=== PATIENT | male | born 1985 | race Caucasian/White ===

== ENCOUNTER 2022-05-09 20:14 | Emergency (ER) | payer SELFPAY ==
[~2022-05-09] VITALS: Ht 180.3 cm; Wt 97.5 kg
[2022-05-09] MEDS ORDERED: CEPH500 PO (22:17)
== END 2022-05-09 22:29 | disposition home or self-care (01) ==
LOC: ER 20:14
DX: L03.113 Cellulitis of right upper limb (principal); L03.114 Cellulitis of left upper limb
CPT/HCPCS: 99283; A9270

== ENCOUNTER 2022-10-05 05:30 | Inpatient (IN) | payer OTHER ==
[~2022-10-05] VITALS: Ht 180.3 cm; Wt 83.0 kg
[~2022-10-05 05:30] MED LIST: CEPH500 PO
[2022-10-05 06:55] LABS: Hematocrit 25.8 % (37.0-53.0); Hemoglobin 8.8 g/dL (13.5-17.5); Mean Corpuscular HGB 28.4 pg (26.0-34.0); Mean Corpuscular HGB Conc 34.1 g/dL (31.5-36.5); Mean Corpuscular Volume 83 fL (80-100); Mean Platelet Volume 8.9 fL (9.1-12.4); Platelet Count 307 K/mm3 (150-400); RDW Coefficient Variation 13.2 % (11.7-14.2); RDW Standard Deviation 39.8 fL (35.1-46.3); White Blood Cell Count 24.93 K/mm3 (4.00-11.30)
[2022-10-05 07:25] LABS: Albumin, Blood 2.1 g/dL (3.4-5.0); Albumin/Globulin Ratio 0.4 (0.8-1.8); Bilirubin, Total 0.8 mg/dL (0.1-1.0); Bun/Creatinine Ratio 37.6 (12.0-20.0); C-REACTIVE PROTEIN, EXT RANGE 15.1 mg/dL (0.000-0.300); Calcium, Blood 8.3 mg/dL (8.5-10.1); Creatinine, Blood 0.93 mg/dL (0.60-1.20); Globulin, Blood 4.9 g/dL (2.2-4.0); Potassium, Blood 4.2 mmol/L (3.5-5.5)
[2022-10-05 07:36] LABS: BAND PERCENT MAN 5 % (0-8); BASOPHILS PERCENT MAN 0 % (0-2); EOSINOPHILS PERCENT MAN 0 % (0-6); LYMPHOCYTES ABSOLUTE MAN 1.49 K/mm3 (0.84-5.20); LYMPHOCYTES PERCENT MAN 6 % (21-46); METAMYELOCYTE ABSOLUTE MAN 0.24 K/mm3 (0.00-0.00); METAMYELOCYTE PERCENT MAN 1 % (0-0); MONOCYTES ABSOLUTE MAN 0.49 K/mm3 (0.16-1.47); MONOCYTES PERCENT MAN 2 % (4-13); NEUTROPHILS ABSOLUTE MAN 22.68 K/mm3 (1.96-9.15); SEG NEUTROPHILS PERCENT MAN 86 % (41-73); TOTAL CELLS COUNTED 100
[2022-10-05 12:24] LABS: Source, Urine Clean Catch
[2022-10-05 12:28] LABS: Appearance, Urine Clear (Clear); Bilirubin, Urine Neg (Neg); Blood, Urine 2+ (Neg); Color, Urine Yellow (P-Yellow); Glucose Qualitative, Urine Neg (Neg); Ketones, Urine Neg (Neg); Leukocyte Esterase, Urine Neg (Neg); Nitrite, Urine Neg (Neg); Protein, Urine 2+ (Neg); Specific Gravity, Urine 1.015 (1.003-1.022); Urobilinogen, Urine NORM (Normal)
[2022-10-05 12:52] LABS: Mucus Heavy (0-Heavy); Red Blood Cells, Urine 0-2 /hpf (0-2); White Blood Cells, Urine 0-2 /hpf (0-5)
[2022-10-05 12:55] LABS: Bacteria Rare /hpf; Squamous Epithelial Cells Rare /hpf (Few)
[2022-10-05 12:56] LABS: U Amphetamine Screen DETECTED; U Barbituate Screen Not Detected; U Benzodiazapine Screen Not Detected; U Buprenorphine Screen DETECTED; U Cannabinoids Screen Not Detected; U Cocaine Screen Not Detected; U Methadone Screen Not Detected; U Methamphetamine Screen DETECTED; U Opiates Screen Not Detected; U Oxycodone Screen Not Detected; U Phencyclidine Screen Not Detected; U Propoxyphene Screen Not Detected
[2022-10-05] MEDS ORDERED: BUPRENORPHINE HC2 MG SL (15:13)
[2022-10-05] MEDS ORDERED: VISBIOME 112.51 EACH PO ×2 (15:14)
[2022-10-05] MEDS ORDERED: DOCU100 PO (15:14)
[2022-10-05] MEDS ORDERED: SULTRIDS PO (15:15)
[2022-10-05] MEDS ORDERED: RIFA300 PO (15:15)
--- NOTE | 2022-10-05 18:55 | NUR ---
Admit note Received report from Herminia hanson in ed. Pt to room via gurney at approx 1500, 4 person transfer with slider sheet. Pt wakes to painful stimuli, then quickly falls back to sleep, wakes up to use the urinal. Pt denies pain, chest pain/pressure, sob, nausea, dizziness and numb/tingling. Tele sinus to sinus tach, bp soft, map occasionally less than 65, but trends back up. LR at 150ml/hr. Spo2 >90% on ra, breathing even and unablored, resp rate wnl. Hands and feet peeling. Pt afebrile at admission, pale and diaphoretic. Other vss. No other acute changes noted. Blood cultures X2 positive for gram cocci in cluster, notified Dr Jeannine Rudolph, new order for [facility].
[2022-10-06 04:29] LABS: BASOPHILS PERCENT AUTO 1 % (0-2); EOSINOPHILS ABSOLUTE AUTO 0.23 K/mm3 (0.00-0.68); EOSINOPHILS PERCENT AUTO 1 % (0-6); Hematocrit 26.9 % (37.0-53.0); Hemoglobin 8.3 g/dL (13.5-17.5); IMMATURE GRAN ABSOLUTE AUTO 0.12 K/mm3 (0.00-0.10); IMMATURE GRAN PERCENT AUTO 1 % (0-1); LYMPHOCYTES ABSOLUTE AUTO 1.11 K/mm3 (0.84-5.20); LYMPHOCYTES PERCENT AUTO 7 % (21-46); MONOCYTES ABSOLUTE AUTO 1.01 K/mm3 (0.16-1.47); MONOCYTES PERCENT AUTO 6 % (4-13); Mean Corpuscular HGB 26.9 pg (26.0-34.0); Mean Corpuscular HGB Conc 30.9 g/dL (31.5-36.5); Mean Corpuscular Volume 87 fL (80-100); Mean Platelet Volume 9.6 fL (9.1-12.4); NEUTROPHILS ABSOLUTE AUTO 13.96 K/mm3 (1.96-9.15); NEUTROPHILS PERCENT AUTO 85 % (41-73); Platelet Count 174 K/mm3 (150-400); RDW Coefficient Variation 13.5 % (11.7-14.2); RDW Standard Deviation 43.4 fL (35.1-46.3); Red Blood Cell Count 3.08 M/mm3 (4.30-5.90); White Blood Cell Count 16.53 K/mm3 (4.00-11.30)
[2022-10-06 04:48] LABS: Albumin, Blood 1.5 g/dL (3.4-5.0); Albumin/Globulin Ratio 0.3 (0.8-1.8); Bilirubin, Total 0.5 mg/dL (0.1-1.0); Bun/Creatinine Ratio 34.8 (12.0-20.0); Creatinine, Blood 0.55 mg/dL (0.60-1.20); Globulin, Blood 4.3 g/dL (2.2-4.0); Potassium, Blood 4.2 mmol/L (3.5-5.5); Total Protein, Blood 5.8 g/dL (6.4-8.2)
--- NOTE | 2022-10-06 06:55 | NUR ---
UPDATE DR. COLE UPDATED ON PT'S LOW BP. 80/55. ORDERS FOR 1 L FLUID BOLUS AT THIS TIME.
--- NOTE | 2022-10-06 13:12 | NUR ---
PATIENT TO CT AT THIS TIME.
--- NOTE | 2022-10-06 18:07 | NUR ---
SHIFT SUMMARY: PATIENT AFEBRILE, SOFT BPS - MAP >64, O2 STABLE ON RA. WAXES AND WANES IN MENTATION - A&O X3 WHEN AWAKE, BUT VERY SOMNOLENT AT OTHER TIMES. USES URINAL AT BEDSIDE. MEDICATED PER EMAR. PATIENT WOULD LIKE TO RESTART HIS BUPRENORPHINE - THIS WAS NOT ADDRESSED THIS SHIFT. BED LOW WITH CALL LIGHT IN PLACE. WILL CONTINUE TO MONITOR UNTIL REPORT TO NOC RN.
--- NOTE | 2022-10-06 18:53 | NUR ---
CALL TO MD: CALL PLACED TO DR. KAUFMAN R/T BUPRENORPHINE. PEREYRA TO REVIEW AND MAKE RECOMMENDATION.
[2022-10-06 20:20] LABS: Vancomycin, Trough 9.6 ug/mL (5.0-10.0)
[2022-10-07 04:58] LABS: BASOPHILS ABSOLUTE AUTO 0.06 K/mm3 (0.00-0.23); BASOPHILS PERCENT AUTO 1 % (0-2); EOSINOPHILS ABSOLUTE AUTO 0.85 K/mm3 (0.00-0.68); EOSINOPHILS PERCENT AUTO 7 % (0-6); Hemoglobin 8.3 g/dL (13.5-17.5); IMMATURE GRAN ABSOLUTE AUTO 0.08 K/mm3 (0.00-0.10); IMMATURE GRAN PERCENT AUTO 1 % (0-1); LYMPHOCYTES ABSOLUTE AUTO 1.42 K/mm3 (0.84-5.20); LYMPHOCYTES PERCENT AUTO 11 % (21-46); MONOCYTES ABSOLUTE AUTO 0.89 K/mm3 (0.16-1.47); MONOCYTES PERCENT AUTO 7 % (4-13); Mean Corpuscular HGB Conc 33.2 g/dL (31.5-36.5); Mean Corpuscular Volume 85 fL (80-100); Mean Platelet Volume 9.2 fL (9.1-12.4); NEUTROPHILS ABSOLUTE AUTO 9.71 K/mm3 (1.96-9.15); NEUTROPHILS PERCENT AUTO 75 % (41-73); Platelet Count 199 K/mm3 (150-400); RDW Coefficient Variation 13.4 % (11.7-14.2); RDW Standard Deviation 41.5 fL (35.1-46.3); Red Blood Cell Count 2.96 M/mm3 (4.30-5.90); White Blood Cell Count 13.01 K/mm3 (4.00-11.30)
--- NOTE | 2022-10-07 06:14 | NUR ---
SHIFT SUMMARY NO ACUTE EVENTS THIS SHIFT. PT ALERT AND ORIENTED X4. COOPERATIVE TO CARE. AFEBRILE. BP STABLE. HR 80'S SR. ON RA SATS OVER 96%. MELANY PG DRAWS BLOOD. PAIN ADEQUATELY CONTROLLED BY BUPRENOPRHINE. VOIDS INDEPENDENTLY WITH BEDSIDE URINAL. ASLEEP COMFORTABLY MOST OF NIGHT. IN BED SLEEPING WITH CALL ALARM AT SIDE, WILL CONTINUE TO MONITOR UNTIL REPORT GIVEN TO ONCOMING RN
--- NOTE | 2022-10-07 14:58 | NUR ---
UPDATE: SPOKE WITH DR. Hollis REGARDING MRI ORDERS. RUBIA FROM MRI CONFIRMED MRI CANNOT BE DONE LOCALLY B/C OF PATIENT'S PACEMAKER. DR. Hollis SAID TO PROCEED WITH CT SCAN.
--- NOTE | 2022-10-07 18:38 | NUR ---
SHIFT SUMMARY: PATIENT VSS T/O SHIFT, DENIES CHEST PAIN OR SOB. CT SCAN COMPLETE. ATE WELL AND SLEPT MOST OF SHIFT. POWERGLIDE DRAWS AND FLUSHES. MEDICATED PER EMAR. BED LOW WITH CALL LIGHT IN REACH. WILL CONTINUE TO MONITOR UNTIL REPORT TO NOC RN.
--- NOTE | 2022-10-08 05:27 | NUR ---
SHIFT SUMMARY NO ACUTE EVENTS OVERNIGHT. PT ALERT AND ORIENTED. AFEBRILE. HR SR 80-90'S. BP STABLE. ON RA SATS OVER 93%. VOIDS INDEPENDENTLY W/ BEDSIDE URINAL, LARGE OUTPUT. DENIES CP OR SOB. ASLEEP MOST OF NIGHT. IN BED WITH CALL ALARM AT SIDE, WILL CONTINUE TO MONITOR UNTIL REPORT GIVEN TO ONCOMING RN
--- NOTE | 2022-10-08 10:49 | NUR ---
CARE ASSUMPTION: PATIENT AWAKENS TO VOICE, VSS ON RA, DENIES PAIN/SOB/N/V/D. BEGAN BOWEL CARE PROTOCOL. MEDICATED PER EMAR. PATIENT ATE COMPLETE BREAKFAST. RESIDENT TEAM TO BEDSIDE - PLAN TO CHANGE ABXS TO ADDRESS NEW POSITIVE BLOOD CULTURES. BED LOW WITH CALL LIGHT IN PLACE.
--- NOTE | 2022-10-08 17:28 | NUR ---
TRANSFER: PT TRANSFERRED FROM PCU TO MEDICAL FLOOR AT 1715 VIA HOSPITAL BED WITH BELONGINGS AND WALKER. PT DID NOT APPEAR TO BE IN ANY ACUTE DISTRESS. PT REMAINS HYPOTENSIVE. PT TAKEN DOWN FOR CT WITH CONTRAST. BOTH PERIPHERAL IV AND POWERGLIDE FLUSHED.
--- NOTE | 2022-10-08 18:22 | NUR ---
SHIFT SUMMARY: PT ARRIVED ON MEDICAL FLOOR AROUND 1714. PT WAS TAKEN DOWN TO CT WITH CONTRAST SOON AFTER ARRIVAL TO THE FLOOR. PT HAS NOT C/O ANXIETY, NAUSEA OR PAIN SINCE ARRIVAL TO THE UNIT. PT STABLE ON HIS FEET WITH A ONE PERSON ASSIST. CALL LIGHT IN REACH. BED IN LOWEST POSITION.
--- NOTE | 2022-10-09 04:33 | NUR ---
SHIFT SUMMARY: Pt A/Ox4 and call light appropriate. Overnight pt had no events. He slept well inbetween cares. He had no c/o pain, nausea, or dizziness. Had slight SOB with exertion. Recieved IV ancef per JAN.
[2022-10-09 10:04] LABS: BASOPHILS ABSOLUTE AUTO 0.09 K/mm3 (0.00-0.23); BASOPHILS PERCENT AUTO 1 % (0-2); EOSINOPHILS ABSOLUTE AUTO 0.43 K/mm3 (0.00-0.68); EOSINOPHILS PERCENT AUTO 4 % (0-6); Hematocrit 27.5 % (37.0-53.0); Hemoglobin 8.8 g/dL (13.5-17.5); IMMATURE GRAN ABSOLUTE AUTO 0.36 K/mm3 (0.00-0.10); IMMATURE GRAN PERCENT AUTO 4 % (0-1); LYMPHOCYTES ABSOLUTE AUTO 1.77 K/mm3 (0.84-5.20); LYMPHOCYTES PERCENT AUTO 18 % (21-46); MONOCYTES ABSOLUTE AUTO 1.11 K/mm3 (0.16-1.47); MONOCYTES PERCENT AUTO 11 % (4-13); Mean Corpuscular HGB 27.1 pg (26.0-34.0); Mean Corpuscular Volume 85 fL (80-100); Mean Platelet Volume 9.3 fL (9.1-12.4); NEUTROPHILS ABSOLUTE AUTO 6.36 K/mm3 (1.96-9.15); NEUTROPHILS PERCENT AUTO 63 % (41-73); Platelet Count 169 K/mm3 (150-400); RDW Coefficient Variation 13.4 % (11.7-14.2); RDW Standard Deviation 41.6 fL (35.1-46.3); Red Blood Cell Count 3.25 M/mm3 (4.30-5.90); White Blood Cell Count 10.12 K/mm3 (4.00-11.30)
--- NOTE | 2022-10-09 17:31 | NUR ---
Shift Summary AOx4, pleasant/cooperative. Mostly sleeping throughout day but awakens to verbal stimuli. Carrying on conversation with staff. Following instructions. Good appetite. Up to bathroom independently. Discuss discharge planning with mom Yue ([phone]) with verbal consent from patient; consent form signed. Uye's phone number given to Dr. Amanda Rudolph per Yue's request. Yue verbalized wanting to transfer patient to hospital in [place] so patient can seek continued [facility] inpatient drug/behavioral treatment as soon as Thursday. No complaints. Denies pain. Uneventful day.
--- NOTE | 2022-10-09 19:30 | NUR ---
RECEIVED REPORT FROM DAY RN. PT LYING IN BED ON BACK. ON RA. NO NEEDS AT THIS TIME. WILL PROVIDE CARE. CALL LT IN REACH.
--- NOTE | 2022-10-09 21:30 | NUR ---
REPORT GIVEN TO DARRIN CHEEMA. DENI TO ASSUME CARE OF PT.
--- NOTE | 2022-10-10 06:53 | NUR ---
SUMMARY PT HAD A FEVER DURING THE SHIFT. PT WAS TX WITH APAP AND ICE PACKS. PT RESPONDED WELL AND FEVER BROKE. PT HAS BEEN EATING AND DRINKING WELL. PT ALSO HAS BEEN VOIDING REGULARLY. PT DENIES AND WEAKNESS OR DIZZINESS. PT CURRENTLY AWAKE AND IN GOOD SPIRITS.
[2022-10-10 07:18] LABS: BASOPHILS ABSOLUTE AUTO 0.12 K/mm3 (0.00-0.23); BASOPHILS PERCENT AUTO 1 % (0-2); EOSINOPHILS PERCENT AUTO 4 % (0-6); Hematocrit 32.6 % (37.0-53.0); Hemoglobin 10.4 g/dL (13.5-17.5); IMMATURE GRAN PERCENT AUTO 4 % (0-1); LYMPHOCYTES ABSOLUTE AUTO 1.74 K/mm3 (0.84-5.20); LYMPHOCYTES PERCENT AUTO 12 % (21-46); MONOCYTES ABSOLUTE AUTO 1.27 K/mm3 (0.16-1.47); MONOCYTES PERCENT AUTO 9 % (4-13); Mean Corpuscular HGB 27.2 pg (26.0-34.0); Mean Corpuscular HGB Conc 31.9 g/dL (31.5-36.5); Mean Corpuscular Volume 85 fL (80-100); Mean Platelet Volume 9.6 fL (9.1-12.4); NEUTROPHILS ABSOLUTE AUTO 10.12 K/mm3 (1.96-9.15); NEUTROPHILS PERCENT AUTO 71 % (41-73); Platelet Count 185 K/mm3 (150-400); RDW Coefficient Variation 13.5 % (11.7-14.2); RDW Standard Deviation 42.1 fL (35.1-46.3); Red Blood Cell Count 3.83 M/mm3 (4.30-5.90); White Blood Cell Count 14.35 K/mm3 (4.00-11.30)
[2022-10-10 07:35] LABS: Bun/Creatinine Ratio 25.8 (12.0-20.0); Calcium, Blood 7.9 mg/dL (8.5-10.1); Creatinine, Blood 0.54 mg/dL (0.60-1.20); Potassium, Blood 4.2 mmol/L (3.5-5.5)
[2022-10-10 13:36] LABS: SARS-Cov-2 (COVID-19) PCR, MMC NEGATIVE (NEGATIVE)
--- NOTE | 2022-10-10 16:46 | NUR ---
Shift Summary Mostly in bed. Declined to sit in chair for meals. Afebrile, soft bp's. Good appetite. No acute concerns. A/Ox4.
--- NOTE | 2022-10-11 06:23 | NUR ---
SUMMARY PT HAD A FEVER AND WAS TX PER EMAR WITH RELIEF. PT HAD NO OTHER ISSUES NOTED. PT EATING AND DRINKING. PT IS VOIDING WELL. PT WAS GIVEN MOM IN ADDITION TO OTHER BOWEL CARE MEDS. CALL LIGHT IN REACH.
[2022-10-11 06:30] LABS: BASOPHILS ABSOLUTE AUTO 0.06 K/mm3 (0.00-0.23); BASOPHILS PERCENT AUTO 1 % (0-2); EOSINOPHILS ABSOLUTE AUTO 0.46 K/mm3 (0.00-0.68); EOSINOPHILS PERCENT AUTO 5 % (0-6); Hematocrit 29.8 % (37.0-53.0); Hemoglobin 9.8 g/dL (13.5-17.5); IMMATURE GRAN ABSOLUTE AUTO 0.41 K/mm3 (0.00-0.10); IMMATURE GRAN PERCENT AUTO 4 % (0-1); LYMPHOCYTES ABSOLUTE AUTO 2.25 K/mm3 (0.84-5.20); LYMPHOCYTES PERCENT AUTO 23 % (21-46); MONOCYTES ABSOLUTE AUTO 1.07 K/mm3 (0.16-1.47); MONOCYTES PERCENT AUTO 11 % (4-13); Mean Corpuscular HGB 27.5 pg (26.0-34.0); Mean Corpuscular HGB Conc 32.9 g/dL (31.5-36.5); Mean Corpuscular Volume 84 fL (80-100); Mean Platelet Volume 10.5 fL (9.1-12.4); NEUTROPHILS ABSOLUTE AUTO 5.54 K/mm3 (1.96-9.15); NEUTROPHILS PERCENT AUTO 57 % (41-73); Platelet Count 204 K/mm3 (150-400); RDW Coefficient Variation 13.6 % (11.7-14.2); RDW Standard Deviation 41.5 fL (35.1-46.3); Red Blood Cell Count 3.57 M/mm3 (4.30-5.90); White Blood Cell Count 9.79 K/mm3 (4.00-11.30)
[2022-10-11 06:45] LABS: Bun/Creatinine Ratio 25.4 (12.0-20.0); Calcium, Blood 7.6 mg/dL (8.5-10.1); Creatinine, Blood 0.55 mg/dL (0.60-1.20); Potassium, Blood 4.2 mmol/L (3.5-5.5)
[2022-10-11 13:11] LABS: HCV AB >11.0 (0.0-0.9); HCV LOG10 2.041 (.); HEPATITIS C QUANTITATION 110 IU/mL (.)
--- NOTE | 2022-10-11 15:44 | NUR ---
SHIFT SUMMARY; PATIENT IS COOPERATIVE WITH CARE TODAY. HAS PLEASANT AFFECT. HIS VITAL SIGNS ARE STABLE AND NO INTERVENTIONS NECESSARY. PATIENT DID TAKE A SHOWER TODAY AND USED ONLY COLD WATER. UPON RETURN TO BED WAS SHAKY AND FINGERS AND LIPS WERE BLUE. WARM BLANKETS WERE PROVIDED AND TEMPERATURE RECOVERED QUICKLY. PATIENT STATES "I DON'T KNOW WHY I DID THAT" WAS NOTIFIED AND NO NEW ORDERS RECEIVED. THIS RN SPOKE WITH MOM ARTUR VIA TELEPHONE AND SHE RELATES PATIENT DOES HAVE HISTORY OF OCD AND AUDITORY PROCESSING SYNDROME. WHICH SHE RELATES CAUSES HIM TO MAKE UNSAFE CHOICES. HE DOES NOT LIKE PEOPLE TO KNOW THIS AND WILL "GO OFF" IF HE MENTIONS IT. WAS NOTIFIED AND HE WILL CONSULT WITH MOM TO SEE IF PATIENT WAS EVER ON ANY MEDICATIONS FORE THIS CONDITION.
[2022-10-12 05:14] LABS: BASOPHILS ABSOLUTE AUTO 0.07 K/mm3 (0.00-0.23); BASOPHILS PERCENT AUTO 1 % (0-2); EOSINOPHILS ABSOLUTE AUTO 0.68 K/mm3 (0.00-0.68); EOSINOPHILS PERCENT AUTO 8 % (0-6); Hematocrit 29.3 % (37.0-53.0); Hemoglobin 9.6 g/dL (13.5-17.5); IMMATURE GRAN ABSOLUTE AUTO 0.38 K/mm3 (0.00-0.10); IMMATURE GRAN PERCENT AUTO 5 % (0-1); LYMPHOCYTES ABSOLUTE AUTO 2.26 K/mm3 (0.84-5.20); LYMPHOCYTES PERCENT AUTO 28 % (21-46); MONOCYTES PERCENT AUTO 12 % (4-13); Mean Corpuscular HGB 27.6 pg (26.0-34.0); Mean Corpuscular HGB Conc 32.8 g/dL (31.5-36.5); Mean Corpuscular Volume 84 fL (80-100); Mean Platelet Volume 10.1 fL (9.1-12.4); NEUTROPHILS ABSOLUTE AUTO 3.79 K/mm3 (1.96-9.15); NEUTROPHILS PERCENT AUTO 46 % (41-73); Platelet Count 238 K/mm3 (150-400); RDW Coefficient Variation 13.6 % (11.7-14.2); RDW Standard Deviation 41.9 fL (35.1-46.3); Red Blood Cell Count 3.48 M/mm3 (4.30-5.90); White Blood Cell Count 8.18 K/mm3 (4.00-11.30)
--- NOTE | 2022-10-12 06:04 | NUR ---
SHIFT SUMMARY AOX4. VSS. DENIES PAIN, N/V OR DYSPNEA. IND IN ROOM. ABLE TO MAKE NEEDS KNOWN. AWAITING SAFE DC PLAN. WILL MONITOR.
[2022-10-12 07:25] LABS: Bun/Creatinine Ratio 27.1 (12.0-20.0); Calcium, Blood 7.9 mg/dL (8.5-10.1); Creatinine, Blood 0.48 mg/dL (0.60-1.20); Potassium, Blood 3.9 mmol/L (3.5-5.5)
--- NOTE | 2022-10-12 17:01 | NUR ---
SHIFT SUMMARY- PT IS A/O, PLESANT AND COOPERATIVE. HE IS RECIEVING IV ABX. HE SLEPT INTERMITENTLY THROUGHOUGHT THIS SHITF. HE IS EATING AND DRINKING WELL. APPLIED LOTION TO HIS FEET AND RECOMENDED THAT HE SOAK THEM TO HELP SOFTEN LOOSE SKIN. HIS BED IS IN THE LOW POSITION AND CALL LIGHT IS WITIN REACH.
--- NOTE | 2022-10-13 05:26 | NUR ---
SHIFT SUMMARY A/OX4, IND IN ROOM. DENIES PAIN OR SOB. PG TO MELANY. VSS, NO ACUTE CHANGES AT THIS TIME. BED IN LOWEST POSITION WITH CALL LIGHT IN REACH. WILL CONTINUE TO MONITOR AND REPORT TO ONCOMING RN.
[2022-10-13 05:51] LABS: BASOPHILS ABSOLUTE AUTO 0.09 K/mm3 (0.00-0.23); BASOPHILS PERCENT AUTO 1 % (0-2); EOSINOPHILS ABSOLUTE AUTO 0.51 K/mm3 (0.00-0.68); EOSINOPHILS PERCENT AUTO 5 % (0-6); Hemoglobin 9.9 g/dL (13.5-17.5); IMMATURE GRAN ABSOLUTE AUTO 0.42 K/mm3 (0.00-0.10); IMMATURE GRAN PERCENT AUTO 4 % (0-1); LYMPHOCYTES PERCENT AUTO 23 % (21-46); MONOCYTES ABSOLUTE AUTO 0.87 K/mm3 (0.16-1.47); MONOCYTES PERCENT AUTO 8 % (4-13); Mean Corpuscular HGB 26.1 pg (26.0-34.0); Mean Corpuscular HGB Conc 30.9 g/dL (31.5-36.5); Mean Corpuscular Volume 84 fL (80-100); Mean Platelet Volume 9.5 fL (9.1-12.4); NEUTROPHILS ABSOLUTE AUTO 6.15 K/mm3 (1.96-9.15); NEUTROPHILS PERCENT AUTO 59 % (41-73); Platelet Count 280 K/mm3 (150-400); RDW Coefficient Variation 13.6 % (11.7-14.2); RDW Standard Deviation 41.9 fL (35.1-46.3); Red Blood Cell Count 3.79 M/mm3 (4.30-5.90); White Blood Cell Count 10.44 K/mm3 (4.00-11.30)
[2022-10-13 06:18] LABS: Bun/Creatinine Ratio 23.8 (12.0-20.0); Creatinine, Blood 0.55 mg/dL (0.60-1.20); Potassium, Blood 4.3 mmol/L (3.5-5.5)
--- NOTE | 2022-10-13 17:58 | NUR ---
SHIFT SUMMARY: NO NEW CHANGES THIS SHIFT. PATIENT A&OX4. PLEASANT AND COOPERATIVE WITH CARE. USES CALL LIGHT APPROPRIATELY AND ABLE TO ADVOCATE FOR HIS NEEDS. AMBULATES TO BATHROOM INDEPENDENTLY. RECEIVED SCHEDULE ANTIBIOTICS AND MEDS THIS SHIFT. FEET WERE SOAKED IN A BASIN WITH SOAP AND LUKEWARM WATER TO REMOVE EXCESSIVE DRY SKIN. POWERGLIDE TO MELANY INFUSING NS 10 MLS/HR. VITAL SIGNS REVIEWED. CALL LIGHT IN REACH.
[2022-10-14 04:54] LABS: BASOPHILS ABSOLUTE AUTO 0.09 K/mm3 (0.00-0.23); BASOPHILS PERCENT AUTO 1 % (0-2); EOSINOPHILS ABSOLUTE AUTO 0.48 K/mm3 (0.00-0.68); EOSINOPHILS PERCENT AUTO 3 % (0-6); Hematocrit 27.4 % (37.0-53.0); IMMATURE GRAN ABSOLUTE AUTO 0.37 K/mm3 (0.00-0.10); IMMATURE GRAN PERCENT AUTO 2 % (0-1); LYMPHOCYTES ABSOLUTE AUTO 2.47 K/mm3 (0.84-5.20); LYMPHOCYTES PERCENT AUTO 16 % (21-46); MONOCYTES ABSOLUTE AUTO 0.93 K/mm3 (0.16-1.47); MONOCYTES PERCENT AUTO 6 % (4-13); Mean Corpuscular HGB 27.4 pg (26.0-34.0); Mean Corpuscular HGB Conc 32.8 g/dL (31.5-36.5); Mean Corpuscular Volume 83 fL (80-100); Mean Platelet Volume 8.7 fL (9.1-12.4); NEUTROPHILS ABSOLUTE AUTO 11.46 K/mm3 (1.96-9.15); NEUTROPHILS PERCENT AUTO 73 % (41-73); Platelet Count 249 K/mm3 (150-400); RDW Coefficient Variation 13.7 % (11.7-14.2); RDW Standard Deviation 41.2 fL (35.1-46.3); Red Blood Cell Count 3.29 M/mm3 (4.30-5.90)
[2022-10-14 05:17] LABS: Bun/Creatinine Ratio 25.3 (12.0-20.0); Calcium, Blood 8.1 mg/dL (8.5-10.1); Creatinine, Blood 0.55 mg/dL (0.60-1.20); Potassium, Blood 4.2 mmol/L (3.5-5.5)
--- NOTE | 2022-10-14 06:19 | NUR ---
SHIFT SUMMARY A/OX4, IND IN ROOM. DENIES CHEST PAIN/PRESSURE. PG TO MELANY. Q4 IV ABX GIVEN. VSS, NO ACUTE CHANGES AT THIS TIME. BED IN LOWEST POSITION WITH CALL LIGHT IN REACH. WILL CONTINUE TO MONITOR AND REPORT TO ONCOMING RN.
--- NOTE | 2022-10-14 18:15 | NUR ---
Pt resting quietly. He awakens readily to name. A/o x4. Cooperative with care. Ap reg/reg. No edema. Large urine out pt of dark orange urine. No odor noted. Power glide patent and infusing kvo. Pt up ad lore. Gait steady. Excellent appetite. He denies discomfort. COntinue POC.
[2022-10-15 04:54] LABS: BASOPHILS ABSOLUTE AUTO 0.11 K/mm3 (0.00-0.23); BASOPHILS PERCENT AUTO 1 % (0-2); EOSINOPHILS ABSOLUTE AUTO 0.57 K/mm3 (0.00-0.68); EOSINOPHILS PERCENT AUTO 5 % (0-6); Hemoglobin 8.9 g/dL (13.5-17.5); IMMATURE GRAN ABSOLUTE AUTO 0.46 K/mm3 (0.00-0.10); IMMATURE GRAN PERCENT AUTO 4 % (0-1); LYMPHOCYTES ABSOLUTE AUTO 2.23 K/mm3 (0.84-5.20); LYMPHOCYTES PERCENT AUTO 20 % (21-46); MONOCYTES ABSOLUTE AUTO 0.75 K/mm3 (0.16-1.47); MONOCYTES PERCENT AUTO 7 % (4-13); Mean Corpuscular HGB 27.6 pg (26.0-34.0); Mean Corpuscular Volume 84 fL (80-100); Mean Platelet Volume 8.9 fL (9.1-12.4); NEUTROPHILS ABSOLUTE AUTO 6.94 K/mm3 (1.96-9.15); NEUTROPHILS PERCENT AUTO 63 % (41-73); Platelet Count 228 K/mm3 (150-400); RDW Coefficient Variation 13.9 % (11.7-14.2); Red Blood Cell Count 3.23 M/mm3 (4.30-5.90); White Blood Cell Count 11.06 K/mm3 (4.00-11.30)
[2022-10-15 05:21] LABS: Bun/Creatinine Ratio 28.8 (12.0-20.0); Calcium, Blood 8.4 mg/dL (8.5-10.1); Creatinine, Blood 0.52 mg/dL (0.60-1.20); Potassium, Blood 4.2 mmol/L (3.5-5.5)
--- NOTE | 2022-10-16 05:43 | NUR ---
SHIFT SUMMARY 37 YR M ADMITTED ON 10/06/22 FOR ENDOCARDITIS. FULL CODE. NO ACUTE CHANGES THIS SHIFT. PT IS FRIENDLY AND COOPERATIVE WITH CARE. AMBULATES INDEPENDANTLY AND CALLS APPROPRIATELY.
[2022-10-16 07:58] LABS: BASOPHILS ABSOLUTE AUTO 0.12 K/mm3 (0.00-0.23); BASOPHILS PERCENT AUTO 1 % (0-2); EOSINOPHILS ABSOLUTE AUTO 0.77 K/mm3 (0.00-0.68); EOSINOPHILS PERCENT AUTO 7 % (0-6); Hematocrit 31.1 % (37.0-53.0); IMMATURE GRAN ABSOLUTE AUTO 0.61 K/mm3 (0.00-0.10); IMMATURE GRAN PERCENT AUTO 5 % (0-1); LYMPHOCYTES ABSOLUTE AUTO 2.39 K/mm3 (0.84-5.20); LYMPHOCYTES PERCENT AUTO 20 % (21-46); MONOCYTES ABSOLUTE AUTO 0.86 K/mm3 (0.16-1.47); MONOCYTES PERCENT AUTO 7 % (4-13); Mean Corpuscular HGB 27.2 pg (26.0-34.0); Mean Corpuscular HGB Conc 32.2 g/dL (31.5-36.5); Mean Corpuscular Volume 85 fL (80-100); NEUTROPHILS ABSOLUTE AUTO 7.08 K/mm3 (1.96-9.15); NEUTROPHILS PERCENT AUTO 60 % (41-73); Platelet Count 295 K/mm3 (150-400); RDW Coefficient Variation 14.2 % (11.7-14.2); Red Blood Cell Count 3.68 M/mm3 (4.30-5.90); White Blood Cell Count 11.83 K/mm3 (4.00-11.30)
[2022-10-16 08:08] LABS: Albumin/Globulin Ratio 0.4 (0.8-1.8); Bilirubin, Total 0.2 mg/dL (0.1-1.0); Bun/Creatinine Ratio 27.1 (12.0-20.0); Calcium, Blood 8.2 mg/dL (8.5-10.1); Creatinine, Blood 0.48 mg/dL (0.60-1.20); Globulin, Blood 4.5 g/dL (2.2-4.0); Potassium, Blood 4.3 mmol/L (3.5-5.5); Total Protein, Blood 6.5 g/dL (6.4-8.2)
--- NOTE | 2022-10-16 18:46 | NUR ---
SHIFT SUMMARY- PT HAS HAD NO ACUTE CHANGES T/O THE SHIFT, VSS T/O THE DAY, PG TO BERNARDINO FLUSHES WELL. WILL CTM AND PASS ON TO NIGHT RN IN BEDSIDE REPORT.
--- NOTE | 2022-10-17 04:49 | NUR ---
SHIFT SUMMARY 37 YR M ADMITTED ON 10/06/22 FOR ENDOCARDITIS. FULL CODE. PT HAS SLEPT FOR MOST OF THIS SHIFT AND THIS NURSE HAS HAD MINIMAL INTERACTION WITH HIM. HE IS PLEASANT WHEN HE IS AWAKE BUT MOSTLY HE WANTS TO BE LEFT ALONE TO SLEEP. A&O X 4 AND INDEPENDANT IN THE ROOM.
[2022-10-17 07:55] LABS: BASOPHILS ABSOLUTE AUTO 0.12 K/mm3 (0.00-0.23); BASOPHILS PERCENT AUTO 1 % (0-2); EOSINOPHILS ABSOLUTE AUTO 0.58 K/mm3 (0.00-0.68); EOSINOPHILS PERCENT AUTO 5 % (0-6); Hematocrit 28.8 % (37.0-53.0); Hemoglobin 9.3 g/dL (13.5-17.5); IMMATURE GRAN ABSOLUTE AUTO 0.36 K/mm3 (0.00-0.10); IMMATURE GRAN PERCENT AUTO 3 % (0-1); LYMPHOCYTES ABSOLUTE AUTO 2.72 K/mm3 (0.84-5.20); LYMPHOCYTES PERCENT AUTO 22 % (21-46); MONOCYTES ABSOLUTE AUTO 0.96 K/mm3 (0.16-1.47); MONOCYTES PERCENT AUTO 8 % (4-13); Mean Corpuscular HGB 27.5 pg (26.0-34.0); Mean Corpuscular HGB Conc 32.3 g/dL (31.5-36.5); Mean Corpuscular Volume 85 fL (80-100); Mean Platelet Volume 8.4 fL (9.1-12.4); NEUTROPHILS ABSOLUTE AUTO 7.58 K/mm3 (1.96-9.15); NEUTROPHILS PERCENT AUTO 62 % (41-73); Platelet Count 266 K/mm3 (150-400); RDW Coefficient Variation 14.5 % (11.7-14.2); RDW Standard Deviation 44.2 fL (35.1-46.3); Red Blood Cell Count 3.38 M/mm3 (4.30-5.90); White Blood Cell Count 12.32 K/mm3 (4.00-11.30)
[2022-10-17 08:16] LABS: Bun/Creatinine Ratio 18.6 (12.0-20.0); Calcium, Blood 8.2 mg/dL (8.5-10.1); Creatinine, Blood 0.54 mg/dL (0.60-1.20); Potassium, Blood 4.1 mmol/L (3.5-5.5)
--- NOTE | 2022-10-17 18:02 | NUR ---
SHIFT SUMMARY: PT A&O X4, PLEASANT AND COMMUNICATES WELL WITH STAFF. PT AMBULATED INDEPENDANTLY IN THE HALLWAY. PT HAD NO COMPLAINTS OF PAIN THROUGHOUT THE SHIFT, JUST CHRONIC PRESSURE IN HIS CHEST. PT HAS EXCELLENT APPETITE THROUGHOUT THE DAY. PT MOTHER AND FATHER AT BEDSIDE THROUGHOUT THE SHIFT, GIVING PT SUPPORT AND POSTIVE REINFORCEMENTS. PT RECEVIED ABX W/O NO S/S OF ADVERESE REACTIONS. PT IN BEDEATING WITH CALL LIGHT WITHIN REACH.
[2022-10-18 04:46] LABS: BASOPHILS PERCENT AUTO 1 % (0-2); EOSINOPHILS ABSOLUTE AUTO 0.47 K/mm3 (0.00-0.68); EOSINOPHILS PERCENT AUTO 6 % (0-6); Hematocrit 28.8 % (37.0-53.0); Hemoglobin 9.1 g/dL (13.5-17.5); IMMATURE GRAN ABSOLUTE AUTO 0.31 K/mm3 (0.00-0.10); IMMATURE GRAN PERCENT AUTO 4 % (0-1); LYMPHOCYTES ABSOLUTE AUTO 2.15 K/mm3 (0.84-5.20); LYMPHOCYTES PERCENT AUTO 25 % (21-46); MONOCYTES ABSOLUTE AUTO 0.91 K/mm3 (0.16-1.47); MONOCYTES PERCENT AUTO 11 % (4-13); Mean Corpuscular HGB 27.2 pg (26.0-34.0); Mean Corpuscular HGB Conc 31.6 g/dL (31.5-36.5); Mean Corpuscular Volume 86 fL (80-100); Mean Platelet Volume 8.6 fL (9.1-12.4); NEUTROPHILS ABSOLUTE AUTO 4.52 K/mm3 (1.96-9.15); NEUTROPHILS PERCENT AUTO 53 % (41-73); Platelet Count 266 K/mm3 (150-400); RDW Coefficient Variation 14.4 % (11.7-14.2); RDW Standard Deviation 44.2 fL (35.1-46.3); Red Blood Cell Count 3.35 M/mm3 (4.30-5.90); White Blood Cell Count 8.46 K/mm3 (4.00-11.30)
--- NOTE | 2022-10-18 07:11 | NUR ---
SHIFT SUMMARY PATIENT ALERT AND ORIENTED. HAD NO COMPLAINTS OF PAIN OR SHORTNESS OF BREATH. NO ACUTE ISSUES NOTED OVERNIGHT. CALL LIGHT WITHIN REACH. REPORT GIVEN TO ONCOMING RN.
--- NOTE | 2022-10-18 14:47 | NUR ---
PT PLEASANT TODAY. A/O X4, TALKATIVE. DENIES PAIN EXCEPT AT PACER SITE. STATES PACER RECEIVED ABOUT 2017. COOL, DRY. NO DRAINAGE NOTED. DR IS AWARE, WAS IN ROOM. PT IS MILDLY ANX, CHEERFUL. PLEASANT. ENCOURAGED PT TO ACCEPT WHAT IS, WORK ON GETTING BETTER, AND TO MAKE MORE SOLID DECISIONS MOMENT BY MOMENT. H/R REG, NO MURMUR NOTED. NO TELE. LUNGA DIM LOW LEFT, BALANCE CLEAR, ON R/A. BT X4 STATES LAST BM LAST NITE. VOIDS INDEPENDANT TO BATHROOM. BED IN LOW POSITION, CALL LITE IN REACH, CALLS APPROP
--- NOTE | 2022-10-18 17:03 | NUR ---
PT QUITE PLEASANT TODAY. NO C/O PAIN. DID JUST TAKE SHOWER, TEMP UP TO 100.1, EXPECT FROM SHOWER. PARENTS IN TO SEE TODAY. STATES WILL RETURN LATER. PT CONTINUES TO BE RECEIVING ABX. NO NEW CONCERNS NOTED TODAY. BED IN LOW POSITION, CALL LITE IN REACH, CALLSAPPPROP
[2022-10-19 04:58] LABS: BASOPHILS ABSOLUTE AUTO 0.08 K/mm3 (0.00-0.23); BASOPHILS PERCENT AUTO 1 % (0-2); EOSINOPHILS ABSOLUTE AUTO 0.44 K/mm3 (0.00-0.68); EOSINOPHILS PERCENT AUTO 6 % (0-6); Hematocrit 27.2 % (37.0-53.0); Hemoglobin 8.6 g/dL (13.5-17.5); IMMATURE GRAN ABSOLUTE AUTO 0.21 K/mm3 (0.00-0.10); IMMATURE GRAN PERCENT AUTO 3 % (0-1); LYMPHOCYTES ABSOLUTE AUTO 1.82 K/mm3 (0.84-5.20); LYMPHOCYTES PERCENT AUTO 26 % (21-46); MONOCYTES ABSOLUTE AUTO 0.83 K/mm3 (0.16-1.47); MONOCYTES PERCENT AUTO 12 % (4-13); Mean Corpuscular HGB 27.5 pg (26.0-34.0); Mean Corpuscular HGB Conc 31.6 g/dL (31.5-36.5); Mean Corpuscular Volume 87 fL (80-100); Mean Platelet Volume 8.6 fL (9.1-12.4); NEUTROPHILS ABSOLUTE AUTO 3.69 K/mm3 (1.96-9.15); NEUTROPHILS PERCENT AUTO 52 % (41-73); Platelet Count 245 K/mm3 (150-400); RDW Coefficient Variation 14.8 % (11.7-14.2); RDW Standard Deviation 46.5 fL (35.1-46.3); Red Blood Cell Count 3.13 M/mm3 (4.30-5.90); White Blood Cell Count 7.07 K/mm3 (4.00-11.30)
--- NOTE | 2022-10-19 06:02 | NUR ---
SHIFT SUMMARY NOC PT A/OX4. NO ACUTE CHANGES. PT BP WAS 98/64 THIS AM. PT SLEPT THE ENTIRETY OF THE SHIFT. PT STILL RECEIVING ABX FOR ENDOCARDITIS Q4H. PT WAS PLEASANT AND COOPERATIVE DURING RX PASS. PT IS CURRENTLY RESTING WITH BED RAILS UP, BED IN LOWEST POSIION, AND CALL LIGHT WITHIN REACH.
--- NOTE | 2022-10-19 17:12 | NUR ---
pt remains pleasant and respectful today. no c/o pain at pacer site. states dr told him infected at pacer wire sites. understands may need to have removed at some time. parents were in to visit today. states are pleased with his care. i expressed my gratitude for them being there and supportive. pt taking all meds as prescribed with out problems. no new concerns noted today. pt spends much time watching dvd's and on his new cell phone. bed in low position, call lite in reach, calls approp
--- NOTE | 2022-10-20 03:48 | NUR ---
SHIFT SUMMARY NOC PT A/OX4. PT PLEASANT AND COOPERATIVE TO CARE. PT WAS INFORMED DURING DAY SHIFT THAT HIS PROVIDER TOLD HIM THAT PACER WIRE LEADS ARE INFECTED AND REMOVAL MAY HAVE TO HAPPEN EVENTUALLY. PT TOOK RX WITH NO PROBLEMS. PT WAS UP WATCHING SHOWS ON HIS PHONE. NO ACUTE CHANGES. PT IS CURRENTLY RESTING WITH ABX INFUSING, BED RAILS UP, BED IN LOWEST POSITION, AND CALL LIGHT WITHIN REACH.
[2022-10-20 05:03] LABS: BASOPHILS ABSOLUTE AUTO 0.11 K/mm3 (0.00-0.23); BASOPHILS PERCENT AUTO 1 % (0-2); EOSINOPHILS ABSOLUTE AUTO 0.52 K/mm3 (0.00-0.68); EOSINOPHILS PERCENT AUTO 6 % (0-6); Hematocrit 30.6 % (37.0-53.0); Hemoglobin 9.8 g/dL (13.5-17.5); IMMATURE GRAN ABSOLUTE AUTO 0.15 K/mm3 (0.00-0.10); IMMATURE GRAN PERCENT AUTO 2 % (0-1); LYMPHOCYTES ABSOLUTE AUTO 2.26 K/mm3 (0.84-5.20); LYMPHOCYTES PERCENT AUTO 27 % (21-46); MONOCYTES PERCENT AUTO 12 % (4-13); Mean Corpuscular HGB 27.3 pg (26.0-34.0); Mean Corpuscular Volume 85 fL (80-100); Mean Platelet Volume 8.3 fL (9.1-12.4); NEUTROPHILS ABSOLUTE AUTO 4.47 K/mm3 (1.96-9.15); NEUTROPHILS PERCENT AUTO 52 % (41-73); Platelet Count 246 K/mm3 (150-400); RDW Coefficient Variation 14.6 % (11.7-14.2); Red Blood Cell Count 3.59 M/mm3 (4.30-5.90); White Blood Cell Count 8.51 K/mm3 (4.00-11.30)
--- NOTE | 2022-10-20 19:34 | NUR ---
SHIFT SUMMARY PATIENT ALERT AND ORIENTED AND INDEPENDENT IN THE ROOM. DENIES CHEST PAIN, SOB. TOLERATING REGULAR DIET AND LIQUIDS. VOIDING WELL. Q4 ABX PER IV. PLAN TO AWAIT TRANSFER TO FACILITY FOR REMOVAL OF IMPLANTED DEFIBRILLATOR DEVICE. REPORT GIVEN TO [employer]ERCIAL [employer]ONE SOFTWARE DEVELOPER RN.
--- NOTE | 2022-10-21 04:49 | NUR ---
DATA ANALYTICS ARCHITECT SUMMARY NO ACUTE CHANGES. A/OX4. PT REPORTS HAVING MILD LEFT SIDE CHEST PRESSURE--THIS HAS BEEN ONGOING; NO CHANGES. PT HAS QUESTIONS ABOUT PROCEDURES/SURGERIES T/TREAT ENDOCARDITIS AND VEGITATION ON DEFIB LEADS. ADVISED WOULD PASS QUESTIONS ON TO REVIEW W/PROVIDER TOMORROW. PT ABLE TO MAKE NEEDS KNOWN. CALL LIGHT IN REACH.
[2022-10-21 05:39] LABS: BASOPHILS PERCENT AUTO 1 % (0-2); EOSINOPHILS PERCENT AUTO 7 % (0-6); Hematocrit 28.5 % (37.0-53.0); Hemoglobin 9.1 g/dL (13.5-17.5); IMMATURE GRAN ABSOLUTE AUTO 0.09 K/mm3 (0.00-0.10); IMMATURE GRAN PERCENT AUTO 1 % (0-1); LYMPHOCYTES ABSOLUTE AUTO 1.99 K/mm3 (0.84-5.20); LYMPHOCYTES PERCENT AUTO 29 % (21-46); MONOCYTES ABSOLUTE AUTO 0.74 K/mm3 (0.16-1.47); MONOCYTES PERCENT AUTO 11 % (4-13); Mean Corpuscular HGB 27.2 pg (26.0-34.0); Mean Corpuscular HGB Conc 31.9 g/dL (31.5-36.5); Mean Corpuscular Volume 85 fL (80-100); Mean Platelet Volume 8.6 fL (9.1-12.4); NEUTROPHILS PERCENT AUTO 51 % (41-73); Platelet Count 243 K/mm3 (150-400); RDW Coefficient Variation 14.6 % (11.7-14.2); RDW Standard Deviation 45.1 fL (35.1-46.3); Red Blood Cell Count 3.34 M/mm3 (4.30-5.90); White Blood Cell Count 6.92 K/mm3 (4.00-11.30)
--- NOTE | 2022-10-21 17:40 | NUR ---
SHIFT SUMMARY PT A&OX4 AND IN PLEASENT MOOD T/O SHIFT. RESTING IN BED, WATCHING TV. PT APPEARS ANXIOUS, REPORTED TO DR. CALDERA. TOLERATING PO INTAKE WELL. AMB. IND W/ STEADY GAIT. CONTINUE IV ABX. AWAITING TRANSFER PENDING PLACEMENT. VSS. CALL LIGHT W/IN REACH.
--- NOTE | 2022-10-22 04:53 | NUR ---
PATIENT CARE COORDINATOR SUMMARY NO ACUTE CHANGES. PT PLEASANT AND COOPERATIVE. CONT W/Q4 OXACILLIAN. PT SHOWERED AND BEDDING CHANGE 2300. PT APPETITE GOOD. REPORTS FEELING ANXIOUS. ON THE PHONE W/FAMILY/FRIENDS F/SEVERAL HOURS IN THE EVENING. NO COMPLAINTS OF PAIN. CHANGES MELANY POWER GLIDE DRESSING. ABLE TO MAKE NEEDS KNOWN. INDEPENDENT IN THE ROOM. CALL LIGHT IN REACH.
[2022-10-22 06:54] LABS: Hematocrit 29.4 % (37.0-53.0); Hemoglobin 9.5 g/dL (13.5-17.5)
[2022-10-22 07:04] LABS: Bun/Creatinine Ratio 17.9 (12.0-20.0); Calcium, Blood 8.5 mg/dL (8.5-10.1); Creatinine, Blood 0.56 mg/dL (0.60-1.20); Potassium, Blood 4.1 mmol/L (3.5-5.5)
--- NOTE | 2022-10-22 18:23 | NUR ---
SHIFT SUMMARY PATIENT ALERT AND ORIENTED AND INDEPENDENT IN ROOM. TOLERATING DIET AND LIQUIDS. VOIDING WELL, BM THIS SHIFT. Q4 ABX. WAITING FOR TRANSFER TO ANOTHER HOSPITAL FOR PROCEDURE TO REMOVE IMPLANTED DEFIBRILLATOR AND INFECTED LEADS.
[2022-10-23 06:21] LABS: BASOPHILS ABSOLUTE AUTO 0.12 K/mm3 (0.00-0.23); BASOPHILS PERCENT AUTO 1 % (0-2); EOSINOPHILS ABSOLUTE AUTO 0.45 K/mm3 (0.00-0.68); EOSINOPHILS PERCENT AUTO 5 % (0-6); Hematocrit 32.3 % (37.0-53.0); Hemoglobin 10.3 g/dL (13.5-17.5); IMMATURE GRAN ABSOLUTE AUTO 0.07 K/mm3 (0.00-0.10); IMMATURE GRAN PERCENT AUTO 1 % (0-1); LYMPHOCYTES ABSOLUTE AUTO 2.57 K/mm3 (0.84-5.20); LYMPHOCYTES PERCENT AUTO 31 % (21-46); MONOCYTES ABSOLUTE AUTO 0.85 K/mm3 (0.16-1.47); MONOCYTES PERCENT AUTO 10 % (4-13); Mean Corpuscular HGB 27.3 pg (26.0-34.0); Mean Corpuscular HGB Conc 31.9 g/dL (31.5-36.5); Mean Corpuscular Volume 86 fL (80-100); Mean Platelet Volume 8.6 fL (9.1-12.4); NEUTROPHILS ABSOLUTE AUTO 4.25 K/mm3 (1.96-9.15); NEUTROPHILS PERCENT AUTO 51 % (41-73); Platelet Count 248 K/mm3 (150-400); RDW Coefficient Variation 14.8 % (11.7-14.2); RDW Standard Deviation 46.4 fL (35.1-46.3); Red Blood Cell Count 3.77 M/mm3 (4.30-5.90); White Blood Cell Count 8.31 K/mm3 (4.00-11.30)
[2022-10-23 06:43] LABS: Albumin, Blood 2.2 g/dL (3.4-5.0); Albumin/Globulin Ratio 0.5 (0.8-1.8); Bilirubin, Total 0.2 mg/dL (0.1-1.0); Bun/Creatinine Ratio 23.9 (12.0-20.0); Calcium, Blood 8.6 mg/dL (8.5-10.1); Creatinine, Blood 0.71 mg/dL (0.60-1.20); Globulin, Blood 4.2 g/dL (2.2-4.0); Potassium, Blood 4.7 mmol/L (3.5-5.5); Total Protein, Blood 6.4 g/dL (6.4-8.2)
--- NOTE | 2022-10-23 06:45 | NUR ---
SHIFT SUMMARY; NO ACUTE CHANGES OVERNIGHT. THE PT RESTED IN BED ALL NIGHT LONG. PT DENIES ANY PAIN OR DISCOMFORT AT THIS POINT. THE PT WAS KIND AND COOPERATIVE W/ CARE. PT REMAINS STABLE ON RA THROUGHOUT THE NIGHT. IT WAS DISCOVERED DURING MORNING LAB DRAWS THAT THE PTS POWERGLIDE DOES NOT DRAW, WILL RELAY TO DAYSHIFT RN.
--- NOTE | 2022-10-23 17:33 | NUR ---
NO ACUTE CHANGES. PT INDEPENDENT IN ROOM. CALL LIGHT WITHIN REACH. COOPERATIVE OF ALL CARE. WILL CONTINUE TO MONITOR.
[2022-10-24 05:50] LABS: BASOPHILS PERCENT AUTO 1 % (0-2); EOSINOPHILS ABSOLUTE AUTO 0.35 K/mm3 (0.00-0.68); EOSINOPHILS PERCENT AUTO 5 % (0-6); Hemoglobin 10.2 g/dL (13.5-17.5); IMMATURE GRAN ABSOLUTE AUTO 0.06 K/mm3 (0.00-0.10); IMMATURE GRAN PERCENT AUTO 1 % (0-1); LYMPHOCYTES ABSOLUTE AUTO 2.28 K/mm3 (0.84-5.20); LYMPHOCYTES PERCENT AUTO 31 % (21-46); MONOCYTES ABSOLUTE AUTO 0.77 K/mm3 (0.16-1.47); MONOCYTES PERCENT AUTO 10 % (4-13); Mean Corpuscular HGB 27.1 pg (26.0-34.0); Mean Corpuscular HGB Conc 31.9 g/dL (31.5-36.5); Mean Corpuscular Volume 85 fL (80-100); Mean Platelet Volume 8.4 fL (9.1-12.4); NEUTROPHILS ABSOLUTE AUTO 3.83 K/mm3 (1.96-9.15); NEUTROPHILS PERCENT AUTO 52 % (41-73); Platelet Count 203 K/mm3 (150-400); RDW Coefficient Variation 14.8 % (11.7-14.2); RDW Standard Deviation 45.8 fL (35.1-46.3); Red Blood Cell Count 3.77 M/mm3 (4.30-5.90); White Blood Cell Count 7.39 K/mm3 (4.00-11.30)
[2022-10-24 06:19] LABS: Bun/Creatinine Ratio 33.2 (12.0-20.0); Calcium, Blood 8.6 mg/dL (8.5-10.1); Creatinine, Blood 0.6 mg/dL (0.60-1.20)
--- NOTE | 2022-10-24 07:43 | NUR ---
Shift Summary PT AOx4, independent in room, rcving Q4 ABX for endocarditis and vegitation on implanted pacemaker. Pacemaker needs to come out but [facility] does not have the capability and no beds are avialable elsewhere. BP was somewhat hypotensive this AM 96/67 at 0514, pt asymptomatic. No acute events, pleasant and cooperative with care.
--- NOTE | 2022-10-24 12:14 | NUR ---
RN NOTE MR ELLIS IS A&OX4. AMBULATING INDEPENDENTLY IN HIS ROOM, STEADY GAIT. HE SAID HE HAD A NORMAL BM YESTERDAY. DENIES ANY PAIN OR CONCERNS THIS MORNING. BED LOW, CALL LIGHT IN REACH.
--- NOTE | 2022-10-24 17:52 | NUR ---
SHIFT SUMMARY SEE PRIOR NOTE. MR WRIGHT HAS NOT HAD ANY C/O DISCOMFORT TODAY, NO CHEST PAIN. IV ABX Q 4HRS CONTINUE. HE WOULD LIKE TO DISCUSS POSSIBLE DISCHARGE PRIOR TO ICD REMOVAL WITH HIS DOCTORS TOMORROW. BED LOW, CALL LIGHT IN REACH.
[2022-10-25 06:42] LABS: Hematocrit 30.1 % (37.0-53.0); Hemoglobin 9.5 g/dL (13.5-17.5); Mean Corpuscular HGB 26.9 pg (26.0-34.0); Mean Corpuscular HGB Conc 31.6 g/dL (31.5-36.5); Mean Corpuscular Volume 85 fL (80-100); Mean Platelet Volume 8.7 fL (9.1-12.4); Platelet Count 223 K/mm3 (150-400); RDW Coefficient Variation 15.1 % (11.7-14.2); RDW Standard Deviation 46.6 fL (35.1-46.3); Red Blood Cell Count 3.53 M/mm3 (4.30-5.90); White Blood Cell Count 7.05 K/mm3 (4.00-11.30)
[2022-10-25 07:37] LABS: Albumin, Blood 2.3 g/dL (3.4-5.0); Albumin/Globulin Ratio 0.6 (0.8-1.8); Bilirubin, Total 0.2 mg/dL (0.1-1.0); Bun/Creatinine Ratio 30.8 (12.0-20.0); Calcium, Blood 8.2 mg/dL (8.5-10.1); Creatinine, Blood 0.59 mg/dL (0.60-1.20); Globulin, Blood 3.9 g/dL (2.2-4.0); Total Protein, Blood 6.2 g/dL (6.4-8.2)
--- NOTE | 2022-10-25 07:53 | NUR ---
Shift Summary Pt AOx4, independent in room, rcving Q4 ABX. Awaiting placement to a facility that can remove his implanted pacemaker. Not adhering to cariac diet, ate a lot of pizza and drank 2+ L of soda. VSS, no acute events, pleasant and cooperative with care.
--- NOTE | 2022-10-25 10:32 | NUR ---
AM NOTE MR WRIGHT IS A&OX4. HE DENIES ANY PAIN OR SOB. CONTINUES ON IV ABX.
--- NOTE | 2022-10-25 16:54 | NUR ---
SHIFT SUMMARY MR WRIGHT HAS NOT HAD ANY C/O PAIN TODAY. CONTINUES IVABX Q4HRS TO POWERGLIDE. INDEPENDENT TO SHOWER. FAMILY AT BEDSIDE. BED LOW, CALL LIGHT IN REACH.
[2022-10-26 05:38] LABS: BASOPHILS ABSOLUTE AUTO 0.08 K/mm3 (0.00-0.23); BASOPHILS PERCENT AUTO 1 % (0-2); EOSINOPHILS ABSOLUTE AUTO 0.39 K/mm3 (0.00-0.68); EOSINOPHILS PERCENT AUTO 6 % (0-6); Hemoglobin 9.6 g/dL (13.5-17.5); IMMATURE GRAN ABSOLUTE AUTO 0.06 K/mm3 (0.00-0.10); IMMATURE GRAN PERCENT AUTO 1 % (0-1); LYMPHOCYTES ABSOLUTE AUTO 2.08 K/mm3 (0.84-5.20); LYMPHOCYTES PERCENT AUTO 31 % (21-46); MONOCYTES ABSOLUTE AUTO 0.65 K/mm3 (0.16-1.47); MONOCYTES PERCENT AUTO 10 % (4-13); Mean Corpuscular HGB 27.9 pg (26.0-34.0); Mean Corpuscular HGB Conc 33.1 g/dL (31.5-36.5); Mean Corpuscular Volume 84 fL (80-100); Mean Platelet Volume 8.8 fL (9.1-12.4); NEUTROPHILS ABSOLUTE AUTO 3.39 K/mm3 (1.96-9.15); NEUTROPHILS PERCENT AUTO 51 % (41-73); Platelet Count 211 K/mm3 (150-400); RDW Coefficient Variation 14.8 % (11.7-14.2); RDW Standard Deviation 45.3 fL (35.1-46.3); Red Blood Cell Count 3.44 M/mm3 (4.30-5.90); White Blood Cell Count 6.65 K/mm3 (4.00-11.30)
--- NOTE | 2022-10-26 05:43 | NUR ---
Shift Summary AOx4, independent in room, pleasant and cooperative with care. Rcving Q4 IV ABX. Awaiting placement to a facility which can remove his pacemaker. VSS, no acute events.
[2022-10-26 06:53] LABS: Bun/Creatinine Ratio 28.6 (12.0-20.0); Calcium, Blood 8.4 mg/dL (8.5-10.1); Creatinine, Blood 0.6 mg/dL (0.60-1.20); Potassium, Blood 4.1 mmol/L (3.5-5.5)
[2022-10-26 08:24] LABS: Percent Saturation 15.2 % (20.0-50.0)
--- NOTE | 2022-10-27 04:04 | NUR ---
SHIFT SUMMARY: Pt A/Ox4 and call light apprpriate. No new changes this shift. No c/o pain, dizziness, SOB or nausea. IV abx given per eMar. Pt is independant in his room.
[2022-10-27 08:07] LABS: BASOPHILS ABSOLUTE AUTO 0.08 K/mm3 (0.00-0.23); BASOPHILS PERCENT AUTO 1 % (0-2); EOSINOPHILS ABSOLUTE AUTO 0.33 K/mm3 (0.00-0.68); EOSINOPHILS PERCENT AUTO 5 % (0-6); Hematocrit 30.4 % (37.0-53.0); Hemoglobin 9.9 g/dL (13.5-17.5); IMMATURE GRAN ABSOLUTE AUTO 0.04 K/mm3 (0.00-0.10); IMMATURE GRAN PERCENT AUTO 1 % (0-1); LYMPHOCYTES ABSOLUTE AUTO 1.91 K/mm3 (0.84-5.20); LYMPHOCYTES PERCENT AUTO 30 % (21-46); MONOCYTES ABSOLUTE AUTO 0.64 K/mm3 (0.16-1.47); MONOCYTES PERCENT AUTO 10 % (4-13); Mean Corpuscular HGB 27.2 pg (26.0-34.0); Mean Corpuscular HGB Conc 32.6 g/dL (31.5-36.5); Mean Corpuscular Volume 84 fL (80-100); Mean Platelet Volume 8.6 fL (9.1-12.4); NEUTROPHILS ABSOLUTE AUTO 3.48 K/mm3 (1.96-9.15); NEUTROPHILS PERCENT AUTO 54 % (41-73); Platelet Count 212 K/mm3 (150-400); RDW Coefficient Variation 14.9 % (11.7-14.2); RDW Standard Deviation 45.7 fL (35.1-46.3); Red Blood Cell Count 3.64 M/mm3 (4.30-5.90); White Blood Cell Count 6.48 K/mm3 (4.00-11.30)
--- NOTE | 2022-10-27 18:32 | NUR ---
SHIFT SUMMARY PT A/O X4; PLEASANT AND COOPERATIVE WITH CARE. PT CONTINUES TO WAIT TO BE TRANSFERRED TO A HIGHER LEVEL OF CARE DUE TO HIS HEART. NO COMPLAINTS THIS SHIFT.
--- NOTE | 2022-10-28 03:54 | NUR ---
SHIFT SUMMARY ADMITTED FOR SUBSTANCE ABUSE/ENDOCARDITIS. FULL CODE. AWAITING OPEN BED FOR TRANSFER TO HIGHER LEVEL OF CARE. POWERGLIDE IN RUE. HE DOES HAVE A DEFIBRILLATER IN LEFT UPPER CHEST WALL. HE IS A&O X4, INDEPENDENT IN ROOM. Q4 IV ANTIB RX ARE SCHEDULED. CARDIAC DIET. TYLENOL GIVEN FOR FEVER THIS SHIFT. HE HAS PRESSURED SPEECH. HE IS PLEASANT AND COOPERATIVE WITH CARE. HX OF HOMELESSNESS
--- NOTE | 2022-10-28 12:29 | NUR ---
ADONAY FROM [facility] CALLED FOR PATIENT UPDATE AT 1227 ON 10/28/22. THIS NURSE REPORTED NO ACUTE EVENTS, VSS. ADONAY GAVE THIS NURSE HER DIRECT NUMBER AT [phone] FOR ANY CHANGES /IF PATIENT NEEDED ICU CARE FOR REEVALUATION ON PLACEMENT AT [facility].
[2022-10-28 14:26] LABS: Hematocrit 32.1 % (37.0-53.0); Hemoglobin 10.2 g/dL (13.5-17.5)
[2022-10-28 14:49] LABS: Bun/Creatinine Ratio 21.7 (12.0-20.0); Creatinine, Blood 0.83 mg/dL (0.60-1.20); Potassium, Blood 4.2 mmol/L (3.5-5.5)
--- NOTE | 2022-10-28 19:00 | NUR ---
SHIFT SUMMARY PT AXO, PLEASANT AND COOPERATIVE WITH CARE. VSS THOUGH PT COMPLAINED OF SHORTNESS OF BREATH WITH AMBULATION. PT EDUCATED ON ENDOCARDITIS AND SYMPTOMS AND WARNING SIGNS FOR STROKE PER ENDOCARDITIS PATIENT HANDOUT. PT UP AD BLAS IN ROOM. IV PATENT AND INFUSING PER EMAR. PT DENIES PAIN AND NV. UPDATE GIVEN TO ADONAY FROM [facility], SEE NOTE. NO ACUTE CHANGES THIS SHIFT. PT'S FATHER IN ROOM THROUGHOUT THE DAY. BED IN LOW POSITION, CALL LIGHT WITHIN REACH. THERAPEUTIC COMMUNICATION AND ACTIVE LISTENING UTILIZED WHEN PATIENT BEGAN SPEAKING WITH THIS NURSE ABOUT HIS FEELINGS AND THOUGHTS REGARDING SUBSTANCE ABUSE CESSATION. THIS NURSE ENCOURAGED CESSATION.
[2022-10-29 08:01] LABS: Hematocrit 27.9 % (37.0-53.0); Hemoglobin 9.1 g/dL (13.5-17.5)
[2022-10-29 08:22] LABS: Bun/Creatinine Ratio 26.1 (12.0-20.0); Calcium, Blood 8.5 mg/dL (8.5-10.1); Creatinine, Blood 0.61 mg/dL (0.60-1.20)
--- NOTE | 2022-10-29 08:30 | NUR ---
Rn summary: Patient is alert and oriented. Dad is at bedside first part of shift. Pt is very talkative. Pt receiving IV ABX Q 4 hours via PICC line. After pt recieved po bupronorphine 10 mg he slept the rest of the night. Call light in each. Awaiting transfer to [facility].
--- NOTE | 2022-10-29 16:32 | NUR ---
NO ACUTE CHANGES. PT AOX4 AND COOPERATIVE OF CARE. PT WAS EXTRA SLEEPY IN THE AM, BUT SINCE HAS WOKE UP AND IS VERY TALKATIVE. PT CALLS APPROPRIATELY AND MAKES NEEDS KNOWN. INDEPENDENT IN ROOM AND CALL LIGHT WITHIN REACH. WILL CONTINUE TO MONITOR.
--- NOTE | 2022-10-30 05:06 | NUR ---
SHIFT SUMMARY: Pt is A/Ox4 and call light appropriate. Denies pain, nausea, dizziness, and SOB. Early this morning pt had a 100.6 temp- tylenol given, HR 115, and now needing 3L of oxygen to maintain >92% as opposed to the RA he has been on. Md paged about change in pt status, MD ordered IVF, and a routine CXR. Pt states he otherwise "Feels normal" radio script writer instructed pt to notify nursing staff if he started to feel "off" compared to his baseline. Pt agreed. He is independant in his room. Voiding and eating adequate amounts.
[2022-10-30 05:10] LABS: BASOPHILS ABSOLUTE AUTO 0.04 K/mm3 (0.00-0.23); BASOPHILS PERCENT AUTO 1 % (0-2); EOSINOPHILS ABSOLUTE AUTO 0.56 K/mm3 (0.00-0.68); EOSINOPHILS PERCENT AUTO 17 % (0-6); Hematocrit 27.2 % (37.0-53.0); Hemoglobin 8.8 g/dL (13.5-17.5); IMMATURE GRAN ABSOLUTE AUTO 0.01 K/mm3 (0.00-0.10); IMMATURE GRAN PERCENT AUTO 0 % (0-1); LYMPHOCYTES ABSOLUTE AUTO 1.44 K/mm3 (0.84-5.20); LYMPHOCYTES PERCENT AUTO 43 % (21-46); MONOCYTES ABSOLUTE AUTO 0.32 K/mm3 (0.16-1.47); MONOCYTES PERCENT AUTO 10 % (4-13); Mean Corpuscular HGB 27.2 pg (26.0-34.0); Mean Corpuscular HGB Conc 32.4 g/dL (31.5-36.5); Mean Corpuscular Volume 84 fL (80-100); Mean Platelet Volume 9.7 fL (9.1-12.4); NEUTROPHILS PERCENT AUTO 30 % (41-73); Platelet Count 178 K/mm3 (150-400); RDW Coefficient Variation 14.8 % (11.7-14.2); RDW Standard Deviation 45.8 fL (35.1-46.3); Red Blood Cell Count 3.24 M/mm3 (4.30-5.90); White Blood Cell Count 3.37 K/mm3 (4.00-11.30)
--- NOTE | 2022-10-30 17:58 | NUR ---
SHIFT SUMMARY NO ACUTE CHANGES DURING SHIFT. PT ALERT AND ORIENTED, CALLS APPROPRIATELY. PT INDEPENDENT IN ROOM. PT ON 3L INITIALLY AT START OF SHIFT, TRANSITIONED TO RA DURING SHIFT, SPO2 REMAINS > 92%. PT FEBRILE AGAIN THIS AFTERNOON, MEDICATED WITH PRN MEDICATION, IMPROVEMENT NOTED. PT PENDING PLACEMENT ONCE BED BECOMES AVAILABLE. WILL CONTINUE TO MONITOR. CALL LIGHT WITHIN REACH.
--- NOTE | 2022-10-31 05:09 | NUR ---
SHIFT SUMMARY: pt A/ox4 and call light appropriate. Denied pain, nausea, dizziness, numbness/tingling. Early this morning pt devlopd a fever of 101.6 and HR of 120, after giving him Tylenol his temp was down to 98.5 and HR of 110. Abx given per eMar. No other complaints this shift.
--- NOTE | 2022-10-31 12:37 | NUR ---
[facility] GAVE UPDATE TO COLE AT [facility] REGARDING PATIENT STATUS. INFORMED THAT PATIENT STILL NEEDS TRANSFER BED.
--- NOTE | 2022-10-31 19:17 | NUR ---
SHIFT SUMMARY- ASSUMED CARE OF THIS PT AT 1530. PT IS A/O, PLESANT AND COOPERATIVE. HE IS EATING AND DRINKING WELL. HE REPORTED THAT HIS POWERGLIDE SITE WAS PAINFUL. UPON INSPECTION IT WAS HOT TO THE TOUCH AND APPERED SWOLLEN COMPARED TO THE OTHER SIDE. LINE WAS REMOVED AND ICE APPLIED TO THE SITE. NEW POWERGLIDE WAS PLACE. PT WAS OFFERED A SHOWER AND WISHES TO WAIT UNTIL TONIGHT TO TAKE IT. HIS BED IS IN THE LOW POSITION AND CALL LIGHT IS WITHIN REACH.
--- NOTE | 2022-10-31 19:31 | NUR ---
RECEIVED REPORT FROM SESAR CLIFFORD.
--- NOTE | 2022-10-31 19:49 | NUR ---
PT LYING IN BED, RESP EVEN ON RA. DENIES PAIN. STATES HE FEELS LIKE HIS NOSE IS STUFFY. NONSTOP TALKING. ORAL TEMP 101.5, HR TACHY AT 115. PT GIVEN CHOCOLATE PUDDING AND VINNY CRACKERS. R ARM IN ICE PACK FOR INFILTRATED PG THAT WAS DC'D. NEW BERNARDINO PG SALINE LOCKED NOW. NO OTHER NEEDS. WILL CONTINUE TO PROVIDE CARE T/O SHIFT. CALL LT IN REACH.
--- NOTE | 2022-10-31 21:45 | NUR ---
PT STATES FEELING BETTER AND THAT HE FEELS LIKE HIS FEVER IS GOING DOWN. REASSESSED ORAL TEMP AND IT WAS 101.0. TEMP IS COMING DOWN. CALL LT IN REACH.
--- NOTE | 2022-10-31 23:58 | NUR ---
PT RESTING QUIETLY. CALL LT IN REACH.
--- NOTE | 2022-11-01 00:15 | NUR ---
PT RESTING QUIETLY. CALL LT IN REACH.
--- NOTE | 2022-11-01 02:49 | NUR ---
NOTIFIED HOSPITALIST OF PT'S 103.3 TEMP, RECEIVED ORDERS FOR IBUPROFEN 400 MG EVERY SIX HRS NEEDED FOR FEVER AND ONE LITER OF NS AT 75 MLS/HR. POP SICLE AND ICE CREAM GIVEN TO PT. CALL LT IN REACH.
--- NOTE | 2022-11-01 03:50 | NUR ---
NS AT 75 MLS/HR INFUSING WITHOUT DIFFICULTY. TEMP 99.6 AFTER IBUPROFEN AND ICE PACKS GIVEN. HR 101. CALL LT IN REACH.
--- NOTE | 2022-11-01 04:48 | NUR ---
SHIFT SUMMARY: ALERT AND ORIENTED. VERY TALKATIVE. ON RA. INDEPENDENT IN RM. ELEVATED TEMPS DURING SHIFT. MEDICATED WITH TYLENOL AND IBUPROFEN. NS STARTED AT 75 MLS/HR X ONE BAG, ICE PACKS PLACED, LAST TEMP 99.6. PT REPORTS FEELING BETTER. ABLE TO REST QUIETLY. WILL CONTINUE TO PROVIDE CARE UNTIL SHIFT REPORT TO ONCOMING NURSE.
[2022-11-01 06:41] LABS: Hematocrit 27.8 % (37.0-53.0); Hemoglobin 9.3 g/dL (13.5-17.5); Mean Corpuscular HGB 27.2 pg (26.0-34.0); Mean Corpuscular HGB Conc 33.5 g/dL (31.5-36.5); Mean Corpuscular Volume 81 fL (80-100); Mean Platelet Volume 9.3 fL (9.1-12.4); Platelet Count 144 K/mm3 (150-400); RDW Coefficient Variation 14.6 % (11.7-14.2); RDW Standard Deviation 43.8 fL (35.1-46.3); Red Blood Cell Count 3.42 M/mm3 (4.30-5.90)
[2022-11-01 07:18] LABS: BAND PERCENT MAN 6 % (0-8); BASOPHILS ABSOLUTE MAN 0.04 K/mm3 (0.00-0.23); BASOPHILS PERCENT MAN 2 % (0-2); EOSINOPHILS ABSOLUTE MAN 0.42 K/mm3 (0.00-0.68); EOSINOPHILS PERCENT MAN 20 % (0-6); LYMPHOCYTES ABSOLUTE MAN 0.35 K/mm3 (0.84-5.20); LYMPHOCYTES PERCENT MAN 17 % (21-46); MONOCYTES ABSOLUTE MAN 0.29 K/mm3 (0.16-1.47); MONOCYTES PERCENT MAN 14 % (4-13); NEUTROPHILS ABSOLUTE MAN 0.98 K/mm3 (1.96-9.15); SEG NEUTROPHILS PERCENT MAN 41 % (41-73); TOTAL CELLS COUNTED 100
--- NOTE | 2022-11-01 18:05 | NUR ---
SHIFT SUMMARY A&O X 4. VSS. NO TEMP TODAY. PT TOOK SHOWER TODAY AFTER BREAKING OUT IN A SWEAT AND SOAKING HIS CLOTHES AND BED. BED LINENS CHANGED AND FRESH CLOTHES PROVIDED. IVF's INFUSING INTO POWER GLIDE IN L UA. IS INDEPENDENT IN THE ROOM. HIS DAD WAS HERE VISITING THIS AFTERNOON. IS PLEASANT & COOPERATIVE WITH ALL CARE.
--- NOTE | 2022-11-01 19:11 | NUR ---
RECEIVED BEDSIDE REPORT FROM DAYSHIFT RN. PT ALERT AND WATCHING TV. RESP E/U ON RA. STATES HE'S FEELING MUCH BETTER TONIGHT. NS AT 75 MLS/HR STILL INFUSING. NO NEEDS AT THIS TIME. WILL CONTINUE TO PROVIDE CARE T/O SHIFT.
--- NOTE | 2022-11-01 20:54 | NUR ---
PT AMBULATING WELL IN RM. ALERT AND ORIENTED. VERY CHATTY AND FRIENDLY AND APPRECIATIVE OF CARE GIVEN NO NEEDS AT THIS TIME. CALL LT IN REACH.
--- NOTE | 2022-11-01 22:30 | NUR ---
PT SITTING UP IN BED TALKING ON HIS CELL PHONE. NO NEEDS AT THIS TIME. CALL LT IN REACH.
--- NOTE | 2022-11-02 00:31 | NUR ---
PT SITTING UP ON BED. NO NEEDS AT THIS TIME. CALL LT IN REACH.
--- NOTE | 2022-11-02 01:08 | NUR ---
SALINE LOCKED PT. NO OTHER NEEDS. CALL LT IN REACH.
--- NOTE | 2022-11-02 02:29 | NUR ---
PT RESTING QUIETLY. CALL LT IN REACH.
--- NOTE | 2022-11-02 04:21 | NUR ---
PT REPORTS NOT WAKING UP SWEATY LIKE YESTERDAY. FEELS BETTER. UNABLE TO DRAW BLOOD FROM POWERGLIDE. ABX HUNG AND INFUSING. NO OTHER NEEDS. CALL LT IN REACH.
--- NOTE | 2022-11-02 04:27 | NUR ---
SHIFT SUMMARY: A/O. TALKATIVE. UP INDEPENDENTLY. ON RA. NO COMPLAINTS OF PAIN OR SOB. EATING AND DRINKING WELL. NO NAUSEA. SALINE LOCKED. RECEIVING SCHEDULED IV ABX EVERY 4 HOURS. UNABLE TO DRAW BLOOD FROM BERNARD[place] POWERGLIDE, FLUSHES AND INFUSES WELL. RESTED WELL OFF AND ON. NO ACUTE CHANGES. WILL CONTINUE TO PROVIDE CARE UNTIL SHIFT REPORT.
[2022-11-02 05:26] LABS: Hematocrit 26.6 % (37.0-53.0); Hemoglobin 8.6 g/dL (13.5-17.5); Mean Corpuscular HGB 26.5 pg (26.0-34.0); Mean Corpuscular HGB Conc 32.3 g/dL (31.5-36.5); Mean Corpuscular Volume 82 fL (80-100); Mean Platelet Volume 9.3 fL (9.1-12.4); Platelet Count 132 K/mm3 (150-400); RDW Coefficient Variation 14.6 % (11.7-14.2); RDW Standard Deviation 43.5 fL (35.1-46.3); Red Blood Cell Count 3.24 M/mm3 (4.30-5.90); White Blood Cell Count 2.05 K/mm3 (4.00-11.30)
[2022-11-02 07:25] LABS: BAND PERCENT MAN 5 % (0-8); BASOPHILS ABSOLUTE MAN 0.08 K/mm3 (0.00-0.23); BASOPHILS PERCENT MAN 4 % (0-2); EOSINOPHILS ABSOLUTE MAN 0.45 K/mm3 (0.00-0.68); EOSINOPHILS PERCENT MAN 22 % (0-6); LYMPHOCYTES PERCENT MAN 49 % (21-46); MONOCYTES ABSOLUTE MAN 0.14 K/mm3 (0.16-1.47); MONOCYTES PERCENT MAN 7 % (4-13); NEUTROPHILS ABSOLUTE MAN 0.36 K/mm3 (1.96-9.15); SEG NEUTROPHILS PERCENT MAN 13 % (41-73); TOTAL CELLS COUNTED 100
--- NOTE | 2022-11-02 19:55 | NUR ---
SHIFT SUMMARY PT A&O X 4. VSS. PT IS INDEPENDENT IN THE ROOM FOR ALL OF HIS PERSONAL CARE. R ARM IS SWOLLEN FROM AN IV INFILTRATION, IS GETTING BETTER. L UPPER ARM POWER GLIDE INTACT & PATENT. PT IS AWAITING A BED AT [facility].
[2022-11-03 05:30] LABS: BASOPHILS ABSOLUTE AUTO 0.05 K/mm3 (0.00-0.23); BASOPHILS PERCENT AUTO 2 % (0-2); EOSINOPHILS ABSOLUTE AUTO 0.55 K/mm3 (0.00-0.68); EOSINOPHILS PERCENT AUTO 19 % (0-6); Hematocrit 27.3 % (37.0-53.0); IMMATURE GRAN ABSOLUTE AUTO 0.03 K/mm3 (0.00-0.10); IMMATURE GRAN PERCENT AUTO 1 % (0-1); LYMPHOCYTES PERCENT AUTO 45 % (21-46); MONOCYTES ABSOLUTE AUTO 0.31 K/mm3 (0.16-1.47); MONOCYTES PERCENT AUTO 11 % (4-13); Mean Corpuscular HGB 26.5 pg (26.0-34.0); Mean Corpuscular Volume 81 fL (80-100); Mean Platelet Volume 9.7 fL (9.1-12.4); NEUTROPHILS ABSOLUTE AUTO 0.67 K/mm3 (1.96-9.15); NEUTROPHILS PERCENT AUTO 23 % (41-73); Platelet Count 155 K/mm3 (150-400); RDW Coefficient Variation 14.6 % (11.7-14.2); RDW Standard Deviation 43.4 fL (35.1-46.3); Red Blood Cell Count 3.39 M/mm3 (4.30-5.90); White Blood Cell Count 2.91 K/mm3 (4.00-11.30)
--- NOTE | 2022-11-03 05:41 | NUR ---
SHIFT SUMMARY PT A&O X 4- CALL FROM [facility] RE: TRANSFER- STILL ON WAITING LIST AND REQUESTED THAT WE CALL IF PT DECOMPISATES OR HAVE ANY QUESTIONS- PT UP IN ROOM WITH DAD AT BEGINNING OF SHIFT SHAVING HEAD- PT COOPERATIVE AND REQUESTED SHOWER BEFORE 1999 INFUSION- PLAN IS FOR PT TO TRANSFER TO [facility] ONCE BED OPENING
[2022-11-03 05:48] LABS: Albumin, Blood 2.3 g/dL (3.4-5.0); Albumin/Globulin Ratio 0.6 (0.8-1.8); Bilirubin, Total 0.3 mg/dL (0.1-1.0); Bun/Creatinine Ratio 18.8 (12.0-20.0); Calcium, Blood 8.2 mg/dL (8.5-10.1); Creatinine, Blood 0.64 mg/dL (0.60-1.20); Globulin, Blood 3.9 g/dL (2.2-4.0); Potassium, Blood 4.2 mmol/L (3.5-5.5); Total Protein, Blood 6.2 g/dL (6.4-8.2)
--- NOTE | 2022-11-03 18:41 | NUR ---
SHIFT SUMMARY PT WALKED WITH DAD TO ELEVATORS AND REPORTED HE NEEDED TO REST FOR A WHILE DUE TO BEING SO WINDED AFTER THE WALK. CAME BACK AND WAS WINDED AGAIN AND RECOVERED SEVERAL MINUTES RECOVERY. VERY TALKATIVE ALMOST IN A MANIC WAY BUT FRIENDLY AND OPEN ABOUT CONDITION. HAS BEEN SLEEPING MOST OF THE DAY STATING HE WAS AWAKE ALL NIGHT.
[2022-11-04 04:54] LABS: BASOPHILS ABSOLUTE AUTO 0.08 K/mm3 (0.00-0.23); BASOPHILS PERCENT AUTO 1 % (0-2); EOSINOPHILS ABSOLUTE AUTO 0.75 K/mm3 (0.00-0.68); EOSINOPHILS PERCENT AUTO 12 % (0-6); Hematocrit 29.7 % (37.0-53.0); Hemoglobin 9.8 g/dL (13.5-17.5); IMMATURE GRAN ABSOLUTE AUTO 0.14 K/mm3 (0.00-0.10); IMMATURE GRAN PERCENT AUTO 2 % (0-1); LYMPHOCYTES ABSOLUTE AUTO 1.12 K/mm3 (0.84-5.20); LYMPHOCYTES PERCENT AUTO 18 % (21-46); MONOCYTES ABSOLUTE AUTO 0.47 K/mm3 (0.16-1.47); MONOCYTES PERCENT AUTO 8 % (4-13); Mean Corpuscular HGB 26.8 pg (26.0-34.0); Mean Corpuscular Volume 81 fL (80-100); Mean Platelet Volume 9.6 fL (9.1-12.4); NEUTROPHILS ABSOLUTE AUTO 3.67 K/mm3 (1.96-9.15); NEUTROPHILS PERCENT AUTO 59 % (41-73); Platelet Count 162 K/mm3 (150-400); RDW Coefficient Variation 14.7 % (11.7-14.2); RDW Standard Deviation 43.8 fL (35.1-46.3); Red Blood Cell Count 3.66 M/mm3 (4.30-5.90); White Blood Cell Count 6.23 K/mm3 (4.00-11.30)
[2022-11-04 05:19] LABS: Bun/Creatinine Ratio 24.4 (12.0-20.0); Calcium, Blood 8.2 mg/dL (8.5-10.1); Creatinine, Blood 0.66 mg/dL (0.60-1.20); Potassium, Blood 3.9 mmol/L (3.5-5.5)
--- NOTE | 2022-11-04 07:59 | NUR ---
PT A&O X 4- PT FEBRILE AT BEGINNING OF SHIFT- MEDICATED WITH STAGGERING DOSE OF TYLENOL AND ADVIL- REDUCED TEMPATURE IN ROOM AND PT REMOVED HEAVY BLANKETS- PT UP MOST OF NIGHT- IV ABX INFUSED Q4H - PT INDEPENDENT IN ROOM-
--- NOTE | 2022-11-04 16:54 | NUR ---
SHIFT SUMMARY: PATIENT ALERT AND ORIENTED X4. VERY PLEASANT AND COOPERATIVE WITH ALL CARE. PT DID NOT COMPLAIN OF ANY PAIN THIS SHIFT. PT FEBRILE 0F 101.8 ORAL TEMP. GAVE PT TYLENOL WHICH BROUGHT THE TEMP DOWN TO 101.1. STILL ON WAITING LIST AT [facility]. GOT A CALL TODAY THAT THEY STILL DID NOT HAVE ANY BEDS. PT BELIEVES HE IS DEVELOPING A RASH ON HEAD. HYDROCORTISONE IN ROOM AND WANTS AFTER SHOWER TONIGHT. PT TOLERATING Q4 ABX. CALL LIGHT IN REACH. NO COMPLAINTS AT THIS TIME. WILL CONTINUE TO MONITOR.
[2022-11-05 05:41] LABS: Hemoglobin 9.4 g/dL (13.5-17.5); Mean Corpuscular HGB 26.9 pg (26.0-34.0); Mean Corpuscular HGB Conc 32.4 g/dL (31.5-36.5); Mean Corpuscular Volume 83 fL (80-100); Mean Platelet Volume 9.7 fL (9.1-12.4); Platelet Count 168 K/mm3 (150-400); RDW Coefficient Variation 15.4 % (11.7-14.2); RDW Standard Deviation 46.3 fL (35.1-46.3); White Blood Cell Count 8.21 K/mm3 (4.00-11.30)
--- NOTE | 2022-11-05 06:05 | NUR ---
SHIFT SUMMARY PT A&OX 4- PT FEBRILE AT BEGINNING OF SHIFT - GAVE ADVIL -FEVER RESOLVED- PT HAD INTERMITTENT ANTIBIOTIC INFUSION T/O NIGHT- PT SLEPT T/O NIGHT- PLAN IS FOR TRANSFER TO [facility] FOR DEFIB REPLACED ONCE ACCEPTED- INDEPENDENT IN ROOM
[2022-11-05 06:19] LABS: Bun/Creatinine Ratio 23.6 (12.0-20.0); Calcium, Blood 8.3 mg/dL (8.5-10.1); Creatinine, Blood 0.68 mg/dL (0.60-1.20); Potassium, Blood 4.1 mmol/L (3.5-5.5)
[2022-11-05 06:38] LABS: BAND PERCENT MAN 5 % (0-8); BASOPHILS ABSOLUTE MAN 0.08 K/mm3 (0.00-0.23); BASOPHILS PERCENT MAN 1 % (0-2); EOSINOPHILS PERCENT MAN 11 % (0-6); LYMPHOCYTES PERCENT MAN 11 % (21-46); METAMYELOCYTE ABSOLUTE MAN 0.08 K/mm3 (0.00-0.00); METAMYELOCYTE PERCENT MAN 1 % (0-0); MONOCYTES ABSOLUTE MAN 0.73 K/mm3 (0.16-1.47); MONOCYTES PERCENT MAN 9 % (4-13); MYELOCYTE ABSOLUTE MAN 0.16 K/mm3 (0.00-0.00); MYELOCYTE PERCENT MAN 2 % (0-0); NEUTROPHILS ABSOLUTE MAN 5.33 K/mm3 (1.96-9.15); SEG NEUTROPHILS PERCENT MAN 60 % (41-73); TOTAL CELLS COUNTED 100
--- NOTE | 2022-11-05 16:49 | NUR ---
SHIFT SUMMARY: PATIENT ALERT AND ORIENTED X4. PT BERNARDINO POWERGLIDE WENT BAD THIS AM AND WAS NOT ABLE TO GIVE 0800 ABX. BILL MARINO PLACED NEW POWERGLIDE IN MELANY. POWERGLIDE PATENT, FLUSHING, AND DRAWING WELL. PT REFUSED PICC STATING HE DID NOT FEEL COMFORTABLE NOT HAVING HIS DAD AROUND WHEN PLACED. PT SPIKED A FEVER OF 101.5 THIS AFTERNOON. GAVE PT TYLENOL AND WAITING TO ASSESS IF FEVER LOWERED. [facility] CALLED FOR PT TODAY AND STATED THEY STILL DO NOT HAVE ANY BEDS AND WOULD CALL AGAIN EITHER TONIGHT OR TOMORROW. CALL LIGHT IN REACH. WILL CONTINUE TO MONITOR.
--- NOTE | 2022-11-06 06:48 | NUR ---
SHIFT SUMMARY PT A&O X 4- PT TOOK SCHEDULED MEDS AT BEGINNING OF SHIFT WITHOUT PROBLEMS -PT SLEPT FOR MOST OF THE SHIFT- IV ABX Q4H INFUSED IN RIGHT UPPER ARM MIDLINE- FLUSHES AND GOOD BLOOD RETURN- PT REQUESTED LEFT ARM BE WRAPPED WHERE THE MIDLINE WAS REMOVED TODAY- PT CONCERNED OF SWELLING- NO S/S SWELLING OR REDNESS- PLAN IS FOR PT TO BE TRANSFERRED TO [facility] ONCE BED AVAILABLE
--- NOTE | 2022-11-06 17:45 | NUR ---
NO ACUTE CHANGES, WAITING FOR BED AT [facility], INDEPEDENT IN ROOM, MAKES NEEDS KNOWN, USES CALL LIGHT, CALL LIGHT WITH IN REACH, WILL RELAY TO PM, RN
--- NOTE | 2022-11-07 03:54 | NUR ---
SHIFT SUMMARY ADMITTED FOR ENDOCARDITIS. FULL CODE. PLAN IS FOR TRANSFER TO [facility] WHEN BED IS AVAILABLE. NEW POWERGLIDE IN RIGHT UPPER ARM. ON RA. HE IS A&O X4, INDEPENDENT. IV ANTIB RX ARE SCHEDULED. LOW GRADE FEVERS REPORTED.
[2022-11-07 07:48] LABS: Hematocrit 29.2 % (37.0-53.0); Hemoglobin 9.4 g/dL (13.5-17.5); Mean Corpuscular HGB 26.3 pg (26.0-34.0); Mean Corpuscular HGB Conc 32.2 g/dL (31.5-36.5); Mean Corpuscular Volume 82 fL (80-100); Mean Platelet Volume 9.8 fL (9.1-12.4); Platelet Count 231 K/mm3 (150-400); RDW Coefficient Variation 15.3 % (11.7-14.2); RDW Standard Deviation 45.7 fL (35.1-46.3); Red Blood Cell Count 3.58 M/mm3 (4.30-5.90); White Blood Cell Count 10.84 K/mm3 (4.00-11.30)
[2022-11-07 08:08] LABS: Bun/Creatinine Ratio 19.9 (12.0-20.0); Calcium, Blood 8.3 mg/dL (8.5-10.1); Creatinine, Blood 0.7 mg/dL (0.60-1.20); Potassium, Blood 4.4 mmol/L (3.5-5.5)
--- NOTE | 2022-11-07 18:03 | NUR ---
NO ACUTE CHANGES, USES CALL LIGHT, INDEPENDENT IN ROOM, MAKES NEEDS KNOWN, WAITING FOR BED AVAILABILITY A [facility], WILL RELAY TO PM DARRIN
--- NOTE | 2022-11-08 03:15 | NUR ---
RECIVED CALL FROM [facility] STATING THEY HAVE A BED AVAILABLE. PER [facility], THEY WANT A DOCTORS REPORT/HANDOFF OF PRIMARY MD PRIOR TO TRANSFER. THEY WILL HOLD THE BED FOR PT. WILL ENDORSE TO DAY RN TO HAVE PRIMARY MD CONTACT [facility]. MOTOR BUILDER WINDER AND CLUTCH INSPECTOR HOSPITALIST AWARE.
--- NOTE | 2022-11-08 03:36 | NUR ---
SHIFT SUMMARY NO OVERNIGHT EVENTS. PT AWARE OF PLAN TO TRANSFER LATER TODAY, VERY EXCITED. REPORTS PAIN TO LUE, APPLIED ICE PACK. OTHERWISE NO S/S OF DISTRESS. INDEPENDENT IN ROOM. CALL LIGHT IN REACH, ABLE TO MAKE NEEDS KNOWN.
--- NOTE | 2022-11-08 17:07 | NUR ---
SHIFT SUMMARY: NO NEW CHANGES THIS SHIFT. PATIENT A&OX4. AMBULATES IN ROOM INDEPENDENTLY. RECEIVED SCHEDULED ANTIBIOTICS THIS SHIFT. PATIENT REFUSED SCHEDULED BUSPAR. PER PATIENT "I READ ONLINE ABOUT THE SIDE EFFECTS OF BUSPAR, AND I DON'T LIKE IT. SO I'M NOT TAKING IT AND I WILL TALK TO THE DOCTOR ABOUT THIS MEDICATION." THIS RN WAS ASKING PATIENT IF HE CAN ELABORATE MORE ABOUT THE SIDE EFFECTS OF HE IS HAVING, BUT HE NEVER GIVE THIS RN A STRAIGHT ANSWER INSTEAD HE HAS FLIGHT OF IDEAS THAT IRRELEVANT TO THE SUBJECT. PATIENT REPORTS PAIN TO BERNARDINO. PER PATIENT FROM IV WAS INFILTRATED 3 OR 4 DAYS AGO. APPLIED ICE PACK TO AFFECTED AREA. VITAL SIGNS REVIEWED. POWERGLIDE TO MELANY SALINE LOCKED. AWAITING PLACEMENT TO [facility] WHEN SURGEON AVAILABLE. CALL LIGHT IN REACH.
--- NOTE | 2022-11-09 04:53 | NUR ---
SUMMARY: PATIENT DID WELL OVERNIGHT. AOX4. INDEPENDENT IN ROOM. NO ACUTE EVENTS. VSS. IV ABX GIVEN. PATIENT HAS SWELLING AND PAIN IN L ARM FROM INFILTRATED IV. PROVIDED PATIENT HEAT PACKS AND IBUPROPHEN. [facility] NURSE CALLED TO SAY PATIENT BED IS ON HOLD PROCEDURE SERVICE IS NOT AVAILABLE UNTIL Oct. THEY STATED WE WOULD BE RECEIVING CALLS DAILY TO CHECK ON PATIENT.
--- NOTE | 2022-11-09 14:19 | NUR ---
PATIENT DAD WAS SITTING UP IN THE RECLINER CHAIR BY THE DOOR. INFORMED PATIENT THAT THIS RN WAS ABOUT TO GIVE HIS 1400 SCHEDULED DOSE OF BUSPAR AND GABAPENTIN. PATIENT REPLIED, "OKAY I'M TOTALLY READY FOR IT." AFTER SCANNING PATIENT ARM BAND AND VERIFY PATIENT. THIS RN HAND THE PILL CUP OF MEDS TO PATIENT. THIS RN WITNESS THE PATIENT LIFTED HIS SHEET AND POUR THE PILL CUP UNDER THE SHEET AND COVER IT. THEN, THE PATIENT PRETEND TO POUR THE EMPTY PILL CUP INTO HIS MOUTH. THIS RN POINTED OUT TO THE PATIENT THAT HE INTENTIONALLY POURED OUT THE CUP OF PILL UNDER HIS SHEET. PATIENT STATED, "NO I TOOK THE PILLS." THIS RN LIFTED THE SHEET AND FOUND 3 CAPSULE OF GABAPENTIN AND 1 TABLET OF BUSPAR. PATIENT STATED, "SORRY IT WAS AN ACCIDENT". PATIENT DAD STATED "WHAT ARE YOU DOING MARCO?, YOU NEED TO TAKE YOUR MEDS. PATIENT TOOK THE MEDS. THIS RN ASK PATIENT TO OPEN HIS MOUTH. PATIENT STATED, "I SWALLOWED IT ALREADY." DAD WAS UPSET AND INSTRUCTED THE PATIENT TO OPEN WIDE HIS MOUTH. THEN PATIENT STATED, "I DON'T LIKE THE SIDE EFFECTS OF BUSPAR I'M HAVING NIGHTMARES, SWEATING AND I'M SAD BEING IN THIS ROOM". THIS RN REASSURE PATIENT THAT DR. TRUJILLO WAS ALREADY AWARE OF THE PATIENT CONCERN AND THEY ARE LOOKING FOR DIFFERENT FORM OF ANTIANXIETY MEDS. PATIENT STATED "OKAY." CHARGED RN COOPER WAS NOTIFIED THIS INCIDENCE.
--- NOTE | 2022-11-09 17:18 | NUR ---
SHIFT SUMMARY: NO NEW CHANGES WITH PATIENT CONDITION THIS SHIFT. PATIENT A&OX4. AMBULATES IN ROOM INDEPENDENTLY. RECEIVED SCHEDULED ANTIBIOTICS. VITAL SIGNS REVIEWED. PATIENT DAD WAS IN AND OUT THE ROOM T/O THE DAY AND BROUGHT [facility] FOR LUNCH. PATIENT CONTINUE TO REPORT HAVING DISCOMFORT TO BERNARDINO FROM IV WAS INFILTRATED MANY DAYS AGO. OFFERED ICE PACK/HEATING PAD BUT REFUSED ON MULTIPLE TIMES. PATIENT REPORTS OF SLIGHTLY TENDERNESS TO MELANY POWERGLIDE. PATIENT STATED "SINCE THE DRESSING CHANGED LAST NIGHT IT STARTED THIS TENDERNESS AROUND THE SITE." THIS RN FLUSHED NS TO POWERGLIDE BEFORE STARTED EACH SCHEDULED ANTIBIOTICS. FLUSHED SMOOTHLY c NO RESISTANCE AND HAS BLOOD RETURN TO IT. PATIENT DID NOT REPORTS OF ANY PAIN WHEN FLUSHING NS AND T/O SCHEDULED ANTIBIOTICS INFUSION THIS SHIFT. CALL LIGHT IN REACH.
--- NOTE | 2022-11-09 21:07 | NUR ---
PT'S PG IN MELANY INFILTRATED, DC'D. PT AND RN REPORT PREVIOUS INFILTRATED PG IN BERNARDINO, BERNARDINO APPEARS RED AND PT REPORTS IT IS PAINFUL AND DOES NOT WANT AN IV OR A PG IN THAT ARM. IT WAS DECIDED TO PUT A REGULAR PERIPHERAL IV IN THE RFA AND IN A FEW DAYS REASSESS HIS UA'S TO PLACE A PG AGAIN AFTER THEY HAVE HAD SOME TIME TO HEAL. PT TOLERATED PROCEDURE WELL. US USED TO PLACE IV. NO APPARENT SIGNS OF DISTRESS. CALL LIGHT IS IN REACH.
--- NOTE | 2022-11-10 04:25 | NUR ---
SUMMARY: NO ACUTE EVENTS OVERNIGHT. VSS. PATIENT POWERGLIDE IV IN MELANY INFILTRATED WITH REDNESS AND SWELLING. THIS IS THE THIRD ONE RECENTLY THAT HAS GONE BAD NOW. CHARGE NURSE PLACED PERIPHERAL IV. PLACED TAMPER TAPE AROUND PORTS AND CONNECTIONS ON IV TUBING TO ENSURE PATIENT IS NOT DISCONNECTING OR POSSIBLY INJECTING VESICANTS. PATIENT WAS SUSPICIOUSLY DIVIDING HIS PILLS UP AND STATING HE WOULD TAKE A FEW LATER. EDUCATED PATIENT THAT NURSE HAD TO SEE HIM TAKE ALL THE PILLS. WAITED WITH PATIENT UNTIL HE TOOK ALL PILLS. SAT IN ROOM FOR 5 MINUTES WHILE SUBLINGUAL PILLS DISOLVED WELL BECAUSE PATIENT WAS ENCOURAGING NURSE TO LEAVE ROOM AFTER HE PLACED THEM IN HIS MOUTH. NOTIFIED RAILROAD AUDITOR.
--- NOTE | 2022-11-10 17:52 | NUR ---
SHIFT SUMMARY: PT A/O X 4 IND IN ROOM. PLEASANT AND COOPERATIVE WITH CARE. PT HAD COMPLAINTS OF REDNESS, HEAT AND HARDNESS TO SITES ABOVE OLD IV SITES ON BILAT UPPER ARMS. DR. WATTERS AWARE. PT HAD DAD VISIT THROUGHOUT THE DAY. PT DENIED ANY OTHER CONCERNS.
--- NOTE | 2022-11-11 04:46 | NUR ---
Rn summary: Patient is alert and oriented. Pt is more quiet and with more of a flat affect than usual. Patient has a redened area to rt upper arm from old powerglide site. Area marked and measured: 9cms long , width varies. Area seems slightly less red this am. Left arm with a hard painful lump on the inside of the bicept down to and past the elbow. Lump is solid and painful, quite defined. Area measures about 16cm long to 6 cms wide. Heating pad to area. Arm also appears edemetous especially around the elbow. Otherwise physical assessment is unchanged. Pt has slept most of shift, pt continues to eat snacks and drink plenty of fluid. Call light in reach, independant in room.
--- NOTE | 2022-11-11 18:03 | NUR ---
SHIFT SUMMARY: PT A/O X 4 IND IN ROOM, PLEASANT AND COOPERATIVE. PT HAD ULTRASOUND OF UPPER ARMS AND FOUND TO HAVE SUPERFICIAL CLOTS. PAIN AND SWELLING HAS BEEN MANAGED WITH ADVIL AND HEATING PAD. PT HAD NO OTHER CONCERNS OR COMPLAINTS TODAY.
--- NOTE | 2022-11-12 01:11 | NUR ---
11/11/22 2200 Patient more alert, feels better this evening than he did last night. Lump and swelling to left upper arm smaller but still hard. Rt upper arm still pink. Pt medicated with advil which helps with left arm discomfort. Pt showered. Assessment is otherwise unchanged. Call light in reach.
--- NOTE | 2022-11-12 17:23 | NUR ---
NO ACUTE CHANGES THIS SHIFT. PATIENT COOPERATIVE WITH CARE AND ABLE TO MAKE NEEDS KNOWN. TOLERATING DIET. FATHER WAS AT BEDSIDE FOR MOST THE DAY. CONTINUES TO AWAIT COBRA TRANSFER TO [facility]. NO NEW CONCERNS TODAY.
--- NOTE | 2022-11-13 04:49 | NUR ---
Rn summary: Patient remains alert and oriented. Patient is feeling better, more animated, remains very polite. Pt lump to left arm getting smaller, most pronounced around inner elbow, rt upper arm with redness and small bump. Pt takes motrin 400mg and uses a K-pad for heat with some relief. Pt has been playing video games and watching TV. Pt has slept 2nd half of shift. Continues with q 4 hour IV ABX. Up in room independantly, uses the urinal.
--- NOTE | 2022-11-13 11:11 | NUR ---
PATIENT HANDED BUPRENORPHINE THIS MORNING AND PATIENT SEEMED TO TRY TO DUMP IT IN HIS POCKET INSTEAD OF TAKING IT. WHEN PATIENT SAW THIS NURSE LOOK BACK OVER HE QUICKLY STOPPED TRYING TO PUT IT IN HIS POCKET AND PUT IT IN HIS MOUTH. DR WATTERS NOTIFIED OF THE SITUATION AND WILL TALK TO PHARMACY ABOUT ALTERNATIVE WAYS TO ADMINISTER THE DRUG TO BE SURE THAT IT IS TAKEN APPROPRIATELY.
--- NOTE | 2022-11-13 17:52 | NUR ---
PATIENT A/OX4, INDEPENDENT IN ROOM. CONCERNS CAME UP ABOUT PATIENT POSSIBLY POCKETING HIS MEDICATIONS THIS NURSE WITNESSED PATIENT TRYING TO DUMP PILLS OUT INTO HIS POCKET INSTEAD OF TAKING THEM. HE EVENTUALLY DID PUT THE PILLS IN HIS MOUTH, BUT SEEMED TO BE HOLDING THEM IN HIS MOUTH INSTEAD OF SWALLOWING. CONCERNS BROUGHT UP WITH DR WATTERS AFTER PATIENT HAD AN EPISODE OF SHIVERING AND SHAKING, SKIN FLUSHED AND DIAPHORETIC AND PUPILS PINPOINT THAT LASTED SEVERAL MINUTES. DR WATTERS DID COME UP AND SPEAK WITH THE PATIENT ABOUT THESE CONCERNS. PATIENT REMAINS VERY PLEASANT WITH STAFF. 20G IV TO R FA WNL AND SL. L UPPER ARM SWELLING AND PAIN HAS IMPROVED WELL REDNESS TO R UPPER ARM. RECEVING IV ABX Q4 HOURS. AWAITING TRANSFER TO [facility] ON 11/18.
--- NOTE | 2022-11-14 03:20 | NUR ---
Patient resting in room, no complaints of pain or discomfort.
--- NOTE | 2022-11-14 17:11 | NUR ---
SHIFT SUMMARY: NO ACUTE EVENTS. NO EVIDENCE OF POCKETING OF PILLS. HAD SMALL BM THIS AFTERNOON. DENIES PAIN. AREAS OF INDURATION ON R FOREARM, BERNARDINO, AND LAC FROM INFILTRATED IV'S; APPLYING HEATING PAD PRN. DENIED N/V, TOLERATING PO INTAKE. INDEPENDENT IN ROOM.
--- NOTE | 2022-11-15 06:51 | NUR ---
Shift Summary Pt's arms have hard, tender areas where IVs went bad. His current L hand IV is positional and does well if his hand is in a fist. AOx4, independent in room, pleasant and cooperative with care. Rcving Q4 ABX, awaiting placement to [facility] which is estimated to happen on the . Rcvd a call from transfer and pumphouse operator at [facility] and gave him updates. He told me due to weather the transfer date may be later than the . VSS, no acute events.
--- NOTE | 2022-11-15 16:56 | NUR ---
SHIFT SUMMARY NO ACUTE CHANGES DURING SHIFT. PT ALERT AND ORIENTED, CALLS APPROPRIATELY. PT INDEPENDENT IN ROOM, ON RA. NO C/O PAIN. PT CONTINUES IV ABX. PENDING TRANSFER THIS WEEK TO [facility]. WILL CONTINUE TO MONITOR. CALL LIGHT WITHIN REACH.
--- NOTE | 2022-11-16 01:13 | NUR ---
EMPTY SYRINGES AND MED CUPS WITH PILL RESIDUE FOUND IN PATIENT'S BATHROOM BY THIS RN. PATIENT ADMITS TO SPITTING PILLS FROM MOUTH AND INFUSING SALIVA/PILL SOLUTION VIA HIS IV LINE WITH SUPPLIES REMOVED FROM [facility]. MULTIPLE PRIOR IV SITES WITH S/S PHLEBITIS
--- NOTE | 2022-11-16 03:09 | NUR ---
UPDATE GIVEN TO MICHAEL RN. NO BEDS AVAILABLE AT THIS TIME.
--- NOTE | 2022-11-16 17:32 | NUR ---
SHIFT SUMMARY NO ACUTE CHANGES DURING SHIFT. PT ALERT AND ORIENTED, CALLS APPROPRIATELY. NO C/O PAIN, CONTINUE IV ABX. PT INDEPENDENT IN ROOM. PLAN FOR TRANSFER TO [facility]. CALL LIGHT WITHIN REACH.
--- NOTE | 2022-11-16 21:19 | NUR ---
2046 PT SITTING ON EDGE OF BED, REPORTS PAIN OF 10/10 IN R ARM, HIS FACE SCALE APPEARS TO BE ABOUT A 5/10. PT HAS MULT AREAS OF REDNESS/HARDNESS IN UE'S R/T IV DRUG USE AND FAILED IV'S. NO OTHER APPARENT SIGNS OF DISTRESS. CALL LIGHT IS IN REACH. GAVE IBUPROFEN, WILL EVAL FOR EFFECT.
--- NOTE | 2022-11-17 03:07 | NUR ---
11/16/22 0534 PT LYING IN BED, AWAKE, TALING ON PHONE. NO APPARENT SIGNS OF DISTRESS. CALL LIGHT IS IN REACH. PT DENIES NEED FOR ANYTHING AT THIS TIME.
--- NOTE | 2022-11-17 03:08 | NUR ---
0200 PT LYING IN BED, EYES CLOSED, APPEARS TO BE RESTING. BREATHING IS EVEN, UNLABORED. NO APPARENT SIGNS OF DISTRESS. CALL LIGHT IS IN REACH.
--- NOTE | 2022-11-17 03:57 | NUR ---
PT LYING IN BED, EYES CLOSED, APPEARS TO BE RESTING. BREATHING IS EVEN, UNLABORED. NO APPARENT SIGNS OF DISTRESS. CALL LIGHT IS IN REACH.
--- NOTE | 2022-11-17 03:58 | NUR ---
PT IS AAO X 4, ON RA. REPORTS R ARM PAIN, GOT IBUPROFEN AT HS. MULT RED/HARDENED AREAS ON UE'S R/T IV DRUG USE AND FAILED IV'S.
--- NOTE | 2022-11-17 06:14 | NUR ---
PT LYING IN BED, EYES CLOSED, APPEARS TO BE RESTING. BREATHING IS EVEN, UNLABORED. NO APPARENT SIGNS OF DISTRESS. CALL LIGHT IS IN REACH. NO OTHER CHANGES THIS SHIFT.
[2022-11-17 06:32] LABS: BASOPHILS ABSOLUTE AUTO 0.13 K/mm3 (0.00-0.23); BASOPHILS PERCENT AUTO 2 % (0-2); EOSINOPHILS ABSOLUTE AUTO 3.25 K/mm3 (0.00-0.68); EOSINOPHILS PERCENT AUTO 37 % (0-6); Hematocrit 31.6 % (37.0-53.0); Hemoglobin 10.2 g/dL (13.5-17.5); IMMATURE GRAN ABSOLUTE AUTO 0.08 K/mm3 (0.00-0.10); IMMATURE GRAN PERCENT AUTO 1 % (0-1); LYMPHOCYTES PERCENT AUTO 23 % (21-46); MONOCYTES ABSOLUTE AUTO 0.65 K/mm3 (0.16-1.47); MONOCYTES PERCENT AUTO 7 % (4-13); Mean Corpuscular HGB 26.2 pg (26.0-34.0); Mean Corpuscular HGB Conc 32.3 g/dL (31.5-36.5); Mean Corpuscular Volume 81 fL (80-100); Mean Platelet Volume 8.6 fL (9.1-12.4); NEUTROPHILS ABSOLUTE AUTO 2.75 K/mm3 (1.96-9.15); NEUTROPHILS PERCENT AUTO 31 % (41-73); Platelet Count 243 K/mm3 (150-400); RDW Coefficient Variation 15.2 % (11.7-14.2); RDW Standard Deviation 44.1 fL (35.1-46.3); White Blood Cell Count 8.86 K/mm3 (4.00-11.30)
[2022-11-17 06:55] LABS: Albumin, Blood 2.3 g/dL (3.4-5.0); Albumin/Globulin Ratio 0.6 (0.8-1.8); Bilirubin, Total 0.2 mg/dL (0.1-1.0); Bun/Creatinine Ratio 15.4 (12.0-20.0); Calcium, Blood 8.5 mg/dL (8.5-10.1); Creatinine, Blood 0.65 mg/dL (0.60-1.20); Potassium, Blood 4.1 mmol/L (3.5-5.5); Total Protein, Blood 6.3 g/dL (6.4-8.2)
--- NOTE | 2022-11-17 08:27 | NUR ---
COBRA TRANSFER TO [facility] CALL TO DR. DIMAS FOR CLARIFICATION OF COBRA ORDER. PER DR. DIMAS RN ACCOMPANIMENT NOT NECCESSARY. [facility] TRANSPORT TO BE SCHEDULED.
== END 2022-11-17 11:33 | disposition short-term general hospital (02) | DRG 314 ==
LOC: ER 05:30 → ERHOLD 05:31 → PCU 14:57 → MEDS 10-08 17:10
PROVIDERS: Emergency Medicine; Family Medicine; Student in an Organized Health Care Education/Training Program; ADMIT Hospitalist
DX: T82.7XXA Infection and inflammatory reaction due to other cardiac and vascular devices, implants and grafts, initial encounter (principal); A41.01 Sepsis due to Methicillin susceptible Staphylococcus aureus; I33.0 Acute and subacute infective endocarditis; G92.8 Other toxic encephalopathy; J18.9 Pneumonia, unspecified organism; D61.818 Other pancytopenia; I82.613 Acute embolism and thrombosis of superficial veins of upper extremity, bilateral; E87.20 Acidosis, unspecified; E87.1 Hypo-osmolality and hyponatremia; T40.2X1A Poisoning by other opioids, accidental (unintentional), initial encounter; T80.89XA Other complications following infusion, transfusion and therapeutic injection, initial encounter; F41.9 Anxiety disorder, unspecified; K59.03 Drug induced constipation; K22.4 Dyskinesia of esophagus; I95.9 Hypotension, unspecified; B18.2 Chronic viral hepatitis C; I80.8 Phlebitis and thrombophlebitis of other sites; F15.10 Other stimulant abuse, uncomplicated; F11.10 Opioid abuse, uncomplicated; G89.4 Chronic pain syndrome; Z20.822 Contact with and (suspected) exposure to COVID-19; Z59.819 Housing instability, housed unspecified; Z59.00 Homelessness unspecified; Z91.14 Patient's other noncompliance with medication regimen
CPT/HCPCS: 36415; 71045; 71260; 73701; 74177; 80048; 80053; 80202; 81001; 82728; 83540; 83550; 83605; 83880; 84484; 85014; 85018; 85025; 85027; 85651; 86140; 86803; 87040; 87077; 87186; 93005; 93010; 93306; 93970; 93971; 94760; 94762; 96365; 96366; 96372; 96374; 96375; 96376; 99285-25; A9270; C1751; G0378; J0456; J0690; J1650; J2060; J2310; J2700; J3370; J7030; J7040; J7050; J7120; Q9967; U0004